=== PATIENT | male | born 1985 | race Caucasian/White ===

== ENCOUNTER 2023-06-03 10:05 | Inpatient (IN) ==
[2023-06-03] MEDS: HYDROmorphone INJ 0.5 MG/0.5 ML SYR IV STA (10:31)
--- NOTE | 2023-06-03 11:17 | XRay Report ---
XR knee LT 1 or 2V routine, XR knee RT 1 or 2V routine HISTORY: 38 years-old Male fall, ruptured patellar tendon acute bilateral knee pain status post fall COMPARISON: None TECHNIQUE: 2 views of the bilateral knees FINDINGS: LEFT: Patella howard. Mild circumferential soft tissue swelling most pronounced anteriorly. 6 mm corticated b one fragment noted in the region of the patellar tendon which is age-indeterminate without comparison . No definite acute fracture or dislocation. No large joint effusion. RIGHT: Patella howard. Mild circumferential soft tissue swelling is most pronounced anteriorly. No definite ac [place] fracture or dislocation. No large joint effusion. IMPRESSION: 1. No acute fracture or dislocation. 2. Bilateral patella howard with soft tissue swelling most pronounced anteriorly within the expected lo cation of the proximal patellar tendons. Correlate with physical exam findings to exclude tendon rupt ure(s). ACT 112: Negative or not required by law. The above report was generated using voice recognition software. It may contain grammatical, syntax o r spelling errors. Electronically signed by: Dallin Christopher M.D. 06/03/2023 11:15 AM
--- NOTE | 2023-06-03 13:37 | History & Physical Report ---
Date of Service June 03, 2023 Assessment & Plan (1) Patellar tendon rupture: We discussed diagnosis and treatment options at bedside. He is from the [place] area. He did not feel that he could get back into a vehicle or return home. He was hoping to have his knees treated here. He will be admitted to the orthopedic service. I do need MRIs of both knees. I want to make sure that we are dealing with true patella tendon ruptures before I open him up. If the MRIs confirm patella tendon ruptures then I will plan to fix his patella tendons later tomorrow afternoon. History of Present Illness Chief Complaint: Bilateral patella tendon rupture. Primary Care Provider: RAVI Reddy is a pleasant 38-year-old male who was leaving the [employer] game earlier today when he fell out of his camper. He sustained bilateral knee injuries. He came to the emergency room where radiographs demonstrated superior elevation of his patellas on both the films. This can be suggestive of patella tendon ruptures. He was placed in knee immobilizers. Orthopedics was consulted to evaluate and treat.. Past Med/Surg History Social History Smoking Status: Never smoker Feels Safe at Home: Yes Review of Systems All systems reviewed & are unremarkable except as noted in HPI & below. Physical Exam On physical examination of his legs, he has knee immobilizers in place. He has Kenneth wrap's around both knees. I did not bother taking everything down. I talked to the ER physician. They said they could feel the defects at the patella tendons. He is neurovascular intact.. Constitutional WD/WN, vitals as above Eyes PERRL, conjunctivae normal, anicteric sclerae ENMT external ear and nose normal, oropharynx normal Neck trachea midline, no thyromegaly Respiratory normal respiratory effort Cardiovascular RRR, no murmur, no edema Gastrointestinal (Abdomen) normal bowel sounds, soft, nontender, no hepatosplenomegaly Psychiatric A+Ox3, euthymic affect Results & Data Results & Data Laboratory Results . Diagnostic Findings X-rays of each knee show no signs of arthritis but there is superior displacement of the patella's.. PG Care Time/CCT Total # of Minutes Spent Total Time Spent with Patient: Total time spent is greater than 50% in coordination of care (as documented) at patient's floor/unit and/or counseling patient: Coding Level of Care Code 31340 INT INP/OBS CARE MIN (57 - DECISION FOR SURGERY) Diagnoses Patellar tendon rupture S86.819A
--- OUTSIDE RECORDS SUMMARY | 2023-06-03 15:04 | External Medical Summary ---
Author Name Unknown Address Unknown Organization [facility] [address] [place] Laboratory Report Ordering Provider Test Date Status Rekha Corea 03/13/2023 07:14:14 Final Observation Date Value Abnormality Reference (Units ) Status Cholesterol [Mass/volume] in Serum or Plasma 03/13/2023 10:37:53 185 100-200 (MG/DL) Final Metamizole (Dipyrone) may fa lsely lower test results. Cholesterol in HDL [Mass/volume] in Serum or Plasma 03/13/2023 10:37:53 33 Below low normal 35-80 (MG/DL) Fin al Triglyceride [Mass/volume] in Serum or Plasma 03/13/2023 10:37:53 211 Above high normal 30-190 (MG/DL) Final Metamizole (Dipyrone) may fa lsely lower test results. Cardiac heart disease risk [Ratio] in Serum or Plasma 03/13/2023 10:37:53 5.61 Above high normal 0. 00-4.49 Final 1.2 times the average risk o f CHD Cholesterol in LDL [Mass/volume] in Serum or Plasma by calculation 03/13/2023 10:37:53 110 Above high normal 0-99 (M G/DL) Final Performing Location [facility] [address] [place]
--- OUTSIDE RECORDS SUMMARY | 2023-06-03 15:04 | External Medical Summary ---
Author Name Unknown Address Unknown Organization [facility] [address] [place] Laboratory Report Ordering Provider Test Date Status Rekha Corea 03/13/2023 07:14:14 Final Observation Date Value Abnormality Reference (Units ) Status Neutrophils/100 leukocytes in Blood by Automated count 03/13/2023 09:43:14 51.1 (%) Final Lymphocytes/100 leukocytes in Blood by Automated count 03/13/2023 09:43:14 40.7 (%) Final Monocytes/100 leukocytes in Blood by Automated count 03/13/2023 09:43:14 5.1 (%) Final Eosinophils/100 leukocytes in Blood by Automated count 03/13/2023 09:43:14 1.9 (%) Final Basophils/100 leukocytes in Blood by Automated count 03/13/2023 09:43:14 0.9 (%) Final Immature granulocytes/100 leukocytes in Blood 03/13/2023 09:43:14 0.3 (%) Final Neutrophils [#/volume] in Blood by Automated count 03/13/2023 09:43:14 3.28 1.52-6.68 (K/UL) Final Lymphocytes [#/volume] in Blood by Automated count 03/13/2023 09:43:14 2.61 1.10-3.30 (K/UL) Final Monocytes [#/volume] in Blood by Automated count 03/13/2023 09:43:14 0.33 0.22-0.78 (K/UL) Final Eosinophils [#/volume] in Blood by Automated count 03/13/2023 09:43:14 0.12 0.00-0.40 (K/UL) Final Basophils [#/volume] in Blood by Automated count 03/13/2023 09:43:14 0.06 Above high normal 0.00-0.05 (K/UL) Final Immature granulocytes [#/volume] in Blood by Automated count 03/13/2023 09:43:14 0.02 0.00-0.03 (K/UL) Final Performing Location [facility] [address] [place]
--- OUTSIDE RECORDS SUMMARY | 2023-06-03 15:04 | External Medical Summary ---
Author Name Unknown Address Unknown Organization [facility] [address] [place] Laboratory Report Ordering Provider Test Date Status Rekha Corea 03/13/2023 07:14:14 Final Observation Date Value Abnormality Reference (Units ) Status Thyrotropin [Units/volume] in Serum or Plasma 03/13/2023 10:46:09 2.32 0.45-5.33 (uIU/mL) Final Performing Location [facility] [address] [place]3
--- OUTSIDE RECORDS SUMMARY | 2023-06-03 15:04 | External Medical Summary ---
Author Name Unknown Address Unknown Organization [facility] [address] [place] Laboratory Report Ordering Provider Test Date Status Rekha Corea 03/13/2023 07:14:14 Final Observation Date Value Abnormality Reference (Units ) Status Leukocytes [#/volume] in Blood by Automated count 03/13/2023 09:43:14 6.42 3.85-10.15 (K/UL) Final Erythrocytes [#/volume] in Blood by Automated count 03/13/2023 09:43:14 4.91 4.14-5.52 (M/UL) Final Hemoglobin [Mass/volume] in Blood 03/13/2023 09:43:14 13.9 13.3-16.2 (G/DL) Final Hematocrit [Volume Fraction] of Blood by Automated count 03/13/2023 09:43:14 41.4 39.0-48.0 (%) Final MCV [Entitic volume] by Automated count 03/13/2023 09:43:14 84.3 81.5-98.6 (fL) Final MCH [Entitic mass] by Automated count 03/13/2023 09:43:14 28.3 27.8-33.0 (pg) Final MCHC [Mass/volume] by Automated count 03/13/2023 09:43:14 33.6 32.3-36.7 (G/DL) Final Erythrocyte distribution width [Ratio] by Automated count 03/13/2023 09:43:14 13.7 11.4-15.0 (%) Final Platelets [#/volume] in Blood by Automated count 03/13/2023 09:43:14 269 160-400 (K/UL) Final Erythrocyte distribution width [Entitic volume] by Automated count 03/13/2023 09:43:14 42.1 36.4-46.3 (fL) Final Platelet mean volume [Entitic volume] in Blood by Automated count 03/13/2023 09:43:14 9.8 7.0-10.3 (fL) Final Nucleated erythrocytes/100 cells in Bone marrow by Manual count 03/13/2023 09:43:14 0.0 0.0-1.0 (%) Final Nucleated erythrocytes [#/volume] in Blood by Manual count 03/13/2023 09:43:14 0.00 (K/UL) Final Performing Location [facility] [address] [place] [id number]
--- OUTSIDE RECORDS SUMMARY | 2023-06-03 15:04 | External Medical Summary ---
Author Name Unknown Address Unknown Organization [facility] [address] [place] Laboratory Report Ordering Provider Test Date Status Noel Velazquez 01/12/2023 10:25:00 Final Observation Date Value Abnormality Reference (Units ) Status Final 01/14/2023 10:18:52 No Beta hemolytic streptococci isolated. Final Performing Location [facility] [address] [place]3
--- OUTSIDE RECORDS SUMMARY | 2023-06-03 15:04 | External Medical Summary | Continuity of Care Document ---
Author Name Unknown Organization [facility] [address] Address [address] [facility] [place] [id number] Care Team Providers Care Car Body Inspector Name Role Phone Anmol Da Silva Primary Care Physician [phone] Encounter R FINNBR [id number] Date(s): 05/08/23 - 05/08/23 [facility] [address] [facility] [place] Encounter Diagnosis Unspecified injury of left lower leg, initial encounter(Final) - Pain in right knee(Final) - Exposure to other specified factors, initial encounter(Final) - Discharge Disposition: Home or Self Care Attending Physician: DO Da Silva Earle S Referring Physician: DO Da Silva Earle S Allergies, Adverse Reactions, Alerts No Known Allergies Immunizations Given and Recorded Vaccine Date Status Refusal Reason SARS-CoV-2 (COVID-19) mRNA BNT-162b2 vax 1 05/26/20 Recorded SARS-CoV-2 (COVID-19) mRNA BNT-162b2 vax 2 04/29/20 Recorded 1Result Comment: 2021-03-21: Historical information-source unspecified 2Result Comment: 2021-03-21: Historical information-source unspecified Problem List No Chronic Problems Diagnosis Diagnosis Type Effective Dates Health Status Clinical Service Informant Unspecified injury of left lower leg, initial encounter 05/08/23 Non-Specified Pain in right knee 05/08/23 Non-Specifi ed Unspecified injury of left lower leg, initial encounter 05/08/23 Non-Specified Pain in right knee 05/08/23 Non-Specifi ed Results Radiology Reports * Exam Date Time Procedure Performing Provider Status 05/08/23 6:02 PM XR Knee 3 Views Right Janet Veliz L; Final Notes: (XR Knee 3 Views Right) Reason For Exam: injury Report Exam: XR Knee 3 Views Left, XR Knee 3 Views Right HISTORY: injury. COMPARISONS: None TECHNIQUE: 3 views radiograph of left knee are provided. 3 views radiograph of right knee are provided. FINDINGS: Left knee: No acute fracture or dislocation. Joint spaces are maintained. No bone erosion or destruction. Right knee: No acute fracture or dislocation. Joint spaces are maintained. No large knee joint effusion identified. No bone erosion or destruction. IMPRESSION: No acute fracture or dislocation in both knees. Signed by: Juan Ruiz DO, 05/08/2023 6:29 PM, Workstation ID: [id number] Final Dictated by:DO Ruiz Kyaw N Dictated DT/TM:05/08/2023 6:29 Signed by:DO Ruiz Kyaw N Signed (Electronic Signature):05/08/2023 6:29 p * Exam Date Time Procedure Performing Provider Status 05/08/23 6:02 PM XR Knee 3 Views Left Hernan Veliz L; Final Notes: (XR Knee 3 Views Left) Reason For Exam: injury Report Exam: XR Knee 3 Views Left, XR Knee 3 Views Right HISTORY: injury. COMPARISONS: None TECHNIQUE: 3 views radiograph of left knee are provided. 3 views radiograph of right knee are provided. FINDINGS: Left knee: No acute fracture or dislocation. Joint spaces are maintained. No bone erosion or destruction. Right knee: No acute fracture or dislocation. Joint spaces are maintained. No large knee joint effusion identified. No bone erosion or destruction. IMPRESSION: No acute fracture or dislocation in both knees. Signed by: Juan Ruiz DO, 05/08/2023 6:29 PM, Workstation ID: [id number] Final Dictated by:DO Ruiz Kyaw N Dictated DT/TM:05/08/2023 6:29 Signed by:DO Ruiz Kyaw N Signed (Electronic Signature):05/08/2023 6:29 p Social History Social History Type Response Smoking Status Never smoked cigaret marlyn Sex Male Patient Care team information Care Team Personnel Name: DO Da Silva Earle S Position: Referring Member Role: Primary Care Provider Address: Address: [address] [place], [address] [place] Care Team Related Persons Name: HAYDER SEVERIANO Levi Address: home [address] [facility] [place]
--- OUTSIDE RECORDS SUMMARY | 2023-06-03 15:04 | External Medical Summary | Continuity of Care Document ---
Author Name Unknown Organization [facility] [address] [facility] [place] [id number] Care Team Providers Care Piano Regulator Inspector Name Role Phone Anmol Da Silva Primary Care Physician [phone] Encounter R VADIM [id number] Date(s): 03/13/23 - 03/13/23 [facility] [address] [facility] [place] Discharge Disposition: Home or Self Care Attending [...] Diagnosis Diagnosis Type Effective Dates Health Status Cl inical Service Informant Encounter for screening for other suspected endocrine disorder 03/13/23 Non-Specified Encounter for screening for other suspected endocrine disorder 03/13/23 Non-Specified Encounter for screening for diseases of the blood and blood-forming organs and certain disorders involving the immune mechanism 03/13/23 Non-Specified Encounter for screening for diseases of the blood and blood-forming organs and certain disorders involving the immune mechanism 03/13/23 Non-Specified Encounter for screening for lipoid disorders 03/13/23 Non-Specified Encounter for screening for other suspected endocrine disorder 03/13/23 Non-Specified Encounter for screening for lipoid disorders 03/13/23 Non-Specified Encounter for screening for diseases of the blood and blood-forming organs and certain disorders involving the immune mechanism 03/13/23 Non-Specified Encounter for screening for other suspected endocrine disorder 03/13/23 Non-Specified Encounter for screening for diseases of the blood and blood-forming organs and certain disorders involving the immune mechanism 03/13/23 Non-Specified Encounter for screening for lipoid disorders 03/13/23 Non-Specified Encounter for screening for lipoid disorders 03/13/23 Non-Specified Results Laboratory List Name Date CBC w/ Diff. 03/13/23 Comprehensive Metabolic Panel. 03/13/23 Lipid Panel. 03/13/23 Thyroid Stimulating Hormone. 03/13/23 Automated Differential. 03/13/23 Most recent to oldest [Reference Range]: 1 eGFR CKD-EPI [>=60 mL/min/1.73 m2] >90 m L/min/1.73 m2 (03/13/23 7:14 AM) BUN/Creat Ratio [10-20] 20 (03/13/23 7:14 AM) Osmolality Calc [275-300 mOsm/kg] 279 mO sm/kg (03/13/23 7:14 AM) RDW-CV [11.4-15.0 %] 13.7 % (03/13/23 7:14 AM) RDW-SD [36.4-46.3 fL] 42.1 fL (03/13/23 7:14 AM) Nuc RBC Relative Count [0.0-1.0 %] 0.0 % (03/13/23 7:14 AM) Nuc RBC Abs Count 0.00 K/uL *NA* (03/13/23 7:14 AM) Cardiac Risk ratio [0.00-4.49] 5.61 1 *HI* (03/13/23 7:14 AM) CO2 [22.0-29.0 mmol/L] 27.7 mmol/L (03/13/23 7:14 AM) MPV [7.0-10.3 fL] 9.8 fL (03/13/23 7:14 AM) Immature Gran% 0.3 % *NA* (03/13/23 7:14 AM) Neut% 51.1 % *NA* (03/13/23 7:14 AM) Lymph% 40.7 % *NA* (03/13/23 7:14 AM) Ritchie% 5.1 % *NA* (03/13/23 7:14 AM) Baso% 0.9 % *NA* (03/13/23 7:14 AM) Eos% 1.9 % *NA* (03/13/23 7:14 AM) Immat Gran, Abs [0.00-0.03 K/uL] 0.02 K/ uL (03/13/23 7:14 AM) Neut, Abs [1.52-6.68 K/uL] 3.28 K/uL (03/13/23 7:14 AM) Lymph, Abs [1.10-3.30 K/uL] 2.61 K/uL (03/13/23 7:14 AM) Ritchie, Abs [0.22-0.78 K/uL] 0.33 K/uL (03/13/23 7:14 AM) Baso, Abs [0.00-0.05 K/uL] 0.06 K/uL *HI* (03/13/23 7:14 AM) Eos, Abs [0.00-0.40 K/uL] 0.12 K/uL (03/13/23 7:14 AM) Anion Gap [5-15 mmol/L] 6 mmol/L (03/13/23 7:14 AM) Alb [3.8-5.4 g/dL] 4.3 g/dL (03/13/23 7:14 AM) Alk Phos [60-350 unit/L] 61 unit/L (03/13/23 7:14 AM) ALT [10-60 unit/L] 35 unit/L (03/13/23 7:14 AM) AST [7-40 unit/L] 25 unit/L (03/13/23 7:14 AM) BUN [8-25 mg/dL] 16 mg/dL (03/13/23 7:14 AM) Ca [8.5-10.5 mg/dL] 9.2 mg/dL (03/13/23 7:14 AM) Chol [100-200 mg/dL] 185 mg/dL 2 (03/13/23 7:14 AM) Cl- [97-109 mmol/L] 105 mmol/L (03/13/23 7:14 AM) Cret [0.45-1.00 mg/dL] 0.82 mg/dL 3 (03/13/23 7:14 AM) Glu [50-99 mg/dL] 95 mg/dL 4 (03/13/23 7:14 AM) Hct [39.0-48.0 %] 41.4 % (03/13/23 7:14 AM) HDL [35-80 mg/dL] 33 mg/dL *LOW* (03/13/23 7:14 AM) Hgb [13.3-16.2 g/dL] 13.9 g/dL (03/13/23 7:14 AM) K [3.5-5.1 mmol/L] 4.4 mmol/L (03/13/23 7:14 AM) LDL Chol, Calculated [0-99 mg/dL] 110 mg /dL *HI* (03/13/23 7:14 AM) MCH [27.8-33.0 pg] 28.3 pg (03/13/23 7:14 AM) MCHC [32.3-36.7 g/dL] 33.6 g/dL (03/13/23 7:14 AM) MCV [81.5-98.6 fL] 84.3 fL (03/13/23 7:14 AM) Na [132-145 mmol/L] 139 mmol/L (03/13/23 7:14 AM) Plts [160-400 K/uL] 269 K/uL (03/13/23 7:14 AM) RBC [4.14-5.52 M/uL] 4.91 M/uL (03/13/23 7:14 AM) T Bili [0.2-1.2 mg/dL] 0.4 mg/dL (03/13/23 7:14 AM) Prot [6.2-8.0 g/dL] 7.0 g/dL (03/13/23 7:14 AM) TG [30-190 mg/dL] 211 mg/dL 5 *HI* (03/13/23 7:14 AM) TSH [0.45-5.33 uIU/mL] 2.32 uIU/mL (03/13/23 7:14 AM) WBC [3.85-10.15 K/uL] 6.42 K/uL (03/13/23 7:14 AM) 1Result Comment: 1.2 times the average risk of CHD 2Interpretive Data: Metamizole (Dipyrone) may falsely lower test results. 3Result Comment: eGFR is calculated by the CKD-EPI Creatinine equation (2020). * eGFR (mL/min/1.73) Category/Term >or= 90 G1/Normal or high 60-89 G2/Mildly Decreased 45-59 G3a/Mildly to moderately decreased 30-44 G3b/Moderately to severely decreased 15-29 G4/Severely decreased <15 G5/Kidney Failure *Note New 2020 equation. For more information on GFR and estimating equations, visit: http://www.kidney.org/professionals/kdoqi/gfr.cfm 4Interpretive Data: The Reference Range listed is for fasting blood Glucose only. 5Interpretive Data: Metamizole (Dipyrone) may falsely lower test results. Social History Social History Type Response Smoking Status Never smoked cigaret marlyn Sex Male Patient Care team information Care Team Personnel Name: DO Da Silva Earle S Position: Referring Member Role: Primary Care Provider Address: Address: [address] [place], [address] [place] Care Team Related Persons Name: SEVERIANO SINGLETARY Address: home [address], [place]
[2023-06-03] MEDS ORDERED: Patient's ALLERGY Info needs ENTERED SCH (15:30)
[2023-06-03] MEDS: SODIUM CHLORIDE 0.9% 1,000 ML IV SCH (16:08)
[2023-06-03] MEDS: Patient's ALLERGY Info needs ENTERED STA (17:05)
[2023-06-03] MEDS: diazePAM 5 MG TABLET PO STA (17:32)
--- NOTE | 2023-06-03 18:11 | Emergency Department Note ---
History of Present Illness General Chief complaint: Leg Injury/Pain Stated complaint: LEG INJURY Time Seen by Provider: 06/03/23 10:10 History of Present Illness Maximum Pain Intensity: 4 This 38-year-old male is seen today for evaluation of bilateral knees. The patient [place] This morning he stepped outside in his socks and believes the camper may have sunken the ground overnight. He states the steps to the camper were tilted slightly down. He slipped off of them and onto the ground. He believes his legs hyperextended. He felt pops and had immediate onset of pain in his legs. He was unable to bear weight. He noticed that his patellae were not in a normal position. EMS was called. He was given fentanyl 25 mcg in the ambulance. No prior history of significant knee injury. He states he did have some chronic pain in his patellar tendons since playing basketball in January. He was seen by his PCP 2 weeks ago and had x-rays that were reportedly normal. He denies any numbness or tingling. No additional complaints. He denies striking his head. There was no loss of conscious. Home Medications Medication Instructions Recorded Confirmed Type sildenafil 100 mg tablet 100 mg PO DAILY PRN other 06/03/23 06/03/23 History tirzepatide (weight loss) 2.5 2.5 mg subcut WK 06/03/23 06/03/23 History mg/0.5 mL subcutaneous pen injector (Zepbound) Allergies Allergy/AdvReac Type Severity Reaction Status Date / Time No Known Allergies Allergy Unverified 06/03/23 16:32 Past Med/Surg History Medical History (Updated 06/03/23 @ 18:19 by Leonid Reardon PA-C) Obesity Surgical History (Updated 06/03/23 @ 18:06 by Leonid Reardon PA-C) No pertinent past surgical history Family History Other No pertinent family history Social History (Updated 06/03/23 @ 18:06 by Leonid Reardon PA-C) Smoking Status: Never smoker Hx Alcohol Use: Yes Alcohol type: beer Hx Substance Use: Yes Last Used Substance: Days (ago) Last Used Substance Other:: pt said he takes for anxiety as needed Substance Use Type Other:: medical marijuana Preferred Language: [place] Communication Ability: Effective Hearing Ability: Normal Patient Accounts Clerk Required: No Beliefs That Will Affect Care: None marital status: Current Living Situation: Family current occupational status: employed Feels Safe at Home: Yes Assistive Devices: None Review of Systems A total of 10 systems reviewed and were otherwise negative Physical Exam Vital Signs Vital Signs - 24 hr 06/03/23 10:05 06/03/23 11:43 06/03/23 12:46 Temperature 36.9 C Temperature Source Oral Pulse Rate 89 Pulse Rate [Radial] 77 92 H Pulse Rhythm [Radial] Regular Regular Respiratory Rate 18 18 18 Respiratory Effort / Characteristics Non-Labored Non-Labored Non-Labored Respiratory Depth Normal Normal Normal Respiratory Pattern Regular Regular Regular Blood Pressure 150/81 H Blood Pressure [Right Arm] 171/97 H 154/103 H Blood Pressure Mean 104 Blood Pressure Mean [Right Arm] 121 120 Pulse Oximetry 99 100 100 Oxygen Delivery Method Room Air Room Air Room Air Sepsis Recent Fever Within 48 Hours No Sepsis New/Unexplained Change in Mental Status N/A Sepsis Action Taken by Nursing No Action Required General: Well-developed, well-nourished, young male, in no acute distress. Obvious discomfort. Laying on the bed. Alert and oriented. Skin: Warm and dry with good turgor. No rashes. No ecchymosis or erythema. His patella are visibly high. Mild effusion has developed in both knees. Heart: Heart RRR. No MGR. Peripheral pulses are 2+. Lungs: Lungs are clear to auscultation. No crackles rhonchi or wheezing. Good air movement. The patient is able to take a deep breath. Abdomen: Abdomen was inspected, auscultated, and palpated. Mildly obese. Bowel sounds present x 4. Soft, nontender to palpation. No hepato-splenomegaly. No masses noted. Musculoskeletal: The patient is able to contract his quad and both legs, however this does increase his pain. Both patella are riding high. He has a large palpable defect in the infrapatellar space, with no tendon palpable. He is unable to perform straight leg raise. He cannot actively extend his lower legs. There is intact motor function of the ankles and toes. Stable collateral ligaments bilaterally. No pain with palpation over the gastroc or hamstrings in either leg. Neurologic: Gross sensation is intact across both lower extremities by soft touch. Peripheral pulses are 2+. Course Administered Medications Discontinued Medications Diazepam (Diazepam 5 Mg Tablet) 5 mg PO NOW STA Stop: 06/03/23 16:47 Last Admin: 06/03/23 17:32 Dose: 5 mg Documented By: KASI Hydromorphone HCl (Hydromorphone Inj 0.5 Mg/0.5 Ml Syr) 0.25 mg IV NOW STA Stop: 06/03/23 10:24 Last Admin: 06/03/23 10:31 Dose: 0.25 mg Documented By: JER Sodium Chloride (Nss) 1,000 mls @ 80 mls/hr IV .[id number] MORENA Stop: 07/03/23 14:52 Last Admin: 06/03/23 16:08 Dose: Not Given Documented By: KASI Miscellaneous Information (Patient's Allergy Info Needs Entered) 1 each N/A NOW STA Stop: 06/03/23 16:13 Last Admin: 06/03/23 17:05 Dose: 1 each Documented By: KASI Medical Decision Making Differential Diagnosis Quadriceps tendon rupture, patellar tendon rupture, ACL tear, patellar fracture, knee dislocation Medical Records Attestation: I reviewed the patient's medical records. Home Medications Current Medication List: was personally reviewed by me Imaging Data My Impression: Radiographic imaging obtained today of both knees was interpreted by me and read by radiology. The patient has patella howard bilaterally with soft tissue swelling in both knees. It is confirmative for patellar tendon rupture. No fracture is evident in either knee. MRI imaging of both knees was obtained to rule out additional ligament injury. These were also interpreted by me and read by radiology. Talar tendon ruptures are confirmed. No additional internal derangement is noted. Radiologist's Impression: Knee X-Ray 06/03/23 10:23 XR knee LT 1 or 2V routine, XR knee RT 1 or 2V routine HISTORY: 38 years-old Male fall, ruptured patellar tendon acute bilateral knee pain status post fall COMPARISON: None TECHNIQUE: 2 views of the bilateral knees FINDINGS: LEFT: Patella howard. Mild circumferential soft tissue swelling most pronounced anteriorly. 6 mm corticated bone fragment noted in the region of the patellar tendon which is age-indeterminate without comparison. No definite acute fracture or dislocation. No large joint effusion. RIGHT: Patella howard. Mild circumferential soft tissue swelling is most pronounced anteriorly. No definite acute fracture or dislocation. No large joint effusion. IMPRESSION: 1. No acute fracture or dislocation. 2. Bilateral patella howard with soft tissue swelling most pronounced anteriorly within the expected location of the proximal patellar tendons. Correlate with physical exam findings to exclude tendon rupture(s). ACT 112: Negative or not required by law. The above report was generated using voice recognition software. It may contain grammatical, syntax or spelling errors. Electronically signed by: Dallin Christopher M.D. 06/03/2023 11:15 AM Knee X-Ray 06/03/23 10:23 XR knee LT 1 or 2V routine, XR knee RT 1 or 2V routine HISTORY: 38 years-old Male fall, ruptured patellar tendon acute bilateral knee pain status post fall COMPARISON: None TECHNIQUE: 2 views of the bilateral knees FINDINGS: LEFT: Patella howard. Mild circumferential soft tissue swelling most pronounced anteriorly. 6 mm corticated bone fragment noted in the region of the patellar tendon which is age-indeterminate without comparison. No definite acute fracture or dislocation. No large joint effusion. RIGHT: Patella howard. Mild circumferential soft tissue swelling is most pronounced anteriorly. No definite acute fracture or dislocation. No large joint effusion. IMPRESSION: 1. No acute fracture or dislocation. 2. Bilateral patella howard with soft tissue swelling most pronounced anteriorly within the expected location of the proximal patellar tendons. Correlate with physical exam findings to exclude tendon rupture(s). ACT 112: Negative or not required by law. The above report was generated using voice recognition software. It may contain grammatical, syntax or spelling errors. Electronically signed by: Dallin Christopher M.D. 06/03/2023 11:15 AM Blood Pressure Blood Pressure Findings: Elevated blood pressure Blood Pressure Disposition: elevated BP felt to be situational MDM Narrative The patient was evaluated in room B12. Conservative care measures were discussed. Radiographic imaging was obtained to confirm the patellar tendon ruptures. The patient was placed in Long dressings with Kenneth wraps. He was also placed in knee immobilizers bilaterally. He was given Dilaudid 0.25 mg IV for pain control. An attempt was made to have him stand and transfer using a walker. The patient was unable to stand, and stated he could not go home. He requested surgical intervention here as opposed to home in [place]. His was present for this discussion and was in agreement. The patient last ate 4 hours ago, and would not be able to have surgery for at least another [address] Espinoza from orthopedics was consulted. He came to the department to evaluate the patient. He requested MRI imaging of both knees to rule out any additional injury. These were completed. Impression & Plan Patellar tendon rupture The patient will be admitted to Dr. Espinoza's service. Please see his dictation for final management. The patient remained stable while in the ED. Discharge Plan Visit Data Chief Complaint: Leg Injury/Pain Stated Complaint: LEG INJURY ED Provider: Donald Wallis ED Midlevel Provider: Leonid Reardon Discharge Problem: Patellar tendon rupture Patient Disposition: Admitted As Inpatient Discharge Instructions Interventions: ED Discharge Assessment Last Done: 06/03/23 14:39 Discharge Problem: Patellar tendon rupture Qualifiers: Encounter type: initial encounter Laterality: unspecified laterality Qualified Code(s): S86.819A - Strain of other muscle(s) and tendon(s) at lower leg level, unspecified leg, initial encounter
--- NOTE | 2023-06-03 18:28 | Magnetic Resonance Report ---
MR knee LT wo con CLINICAL HISTORY: 38 years-old Male with patellar tendon rupture. Acute bilateral knee pain COMPARISON: Left knee radiographs of same day TECHNIQUE: Multiplanar, multisequence MRI of the left knee was performed without intravenous contrast . FINDINGS: Motion degraded exam. r MENISCI: The medial and lateral meniscus are normal in position, morphology and signal. CRUCIATE LIGAMENTS: The anterior and posterior cruciate ligaments are normal in signal, morphology an d course. COLLATERAL LIGAMENTS: The popliteus tendon, biceps femoris tendon, fibular collateral ligament and il iotibial band are intact. The superficial and deep components of the medial collateral ligament are intact. EXTENSOR MECHANISM: Distal quadriceps tendon is intact. There is an acute full-thickness rupture of t he proximal patellar tendon demonstrating 5 mm retraction with moderate adjacent deep tissue edema. A cute grade II sprains of the medial and lateral patellofemoral ligaments with acute full thickness te ars involving the patellar insertion fibers of the medial and lateral retinacula at the patellar inse rtion sites. Patella howard. Small complex joint effusion. KNEE JOINT: No significant joint space narrowing or high-grade chondromalacia. Low to intermediate gr vladimir chondromalacia of the superior trochlea. BONE MARROW: Bone marrow edema of the inferior patella. Evaluation is limited secondary to motion art ifact. SOFT TISSUES: Deep tissue edema surrounding the patellar tendon tear. IMPRESSION: 1. Acute full-thickness tear of the patellar insertion site of the patellar tendon with 5 mm retracti on. 2. Acute full-thickness tears of the patellar insertion fibers of the medial and lateral patellar ret inacula. 3. Acute grade II sprains of the patellofemoral ligaments. 4. Small complex joint effusion with intra-articular debris/hemorrhage. 5. Reactive marrow edema of the inferior patella without acute fracture identified. ACT 112: Negative or not required by law. The above report was generated using voice recognition software. It may contain grammatical, syntax o r spelling errors. Electronically signed by: Dallin Christopher M.D. 06/03/2023 6:27 PM
--- NOTE | 2023-06-03 18:28 | Magnetic Resonance Report ---
MR knee RT wo con CLINICAL HISTORY: 38 years-old Male with patellar tendon rupture. 2 bilateral knee pain status post trauma COMPARISON: Right knee radiographs of same day TECHNIQUE: Multiplanar, multisequence MRI of the right knee was performed without intravenous contras t. FINDINGS: MENISCI: The medial and lateral meniscus are normal in position, morphology and signal. CRUCIATE LIGAMENTS: The anterior and posterior cruciate ligaments are normal in signal, morphology an d course. COLLATERAL LIGAMENTS: The popliteus tendon, biceps femoris tendon, fibular collateral ligament and il iotibial band are intact. The superficial and deep components of the medial collateral ligament are intact. EXTENSOR MECHANISM: Distal quadriceps tendon is intact. There is an acute full-thickness rupture of t he proximal patellar tendon demonstrating 1.7 cm retraction with moderate adjacent deep tissue edema. Acute grade I versus grade II sprains of the medial and lateral patellofemoral ligaments with acute full thickness tears involving the patellar insertion fibers of the medial and lateral retinacula at the patellar insertion sites. Lateral tilt of the patella. Small complex joint effusion. KNEE JOINT: No significant joint space narrowing or high-grade chondromalacia. BONE MARROW: Bone marrow edema of the inferior patella. Evaluation is limited secondary to motion art ifact. SOFT TISSUES: The tissue edema surrounding the patellar tendon tear. IMPRESSION: 1. Acute full-thickness tear of the patellar insertion site of the patellar tendon with 1.7 cm retrac tion. 2. Acute full-thickness tears of the patellar insertion fibers of the medial and lateral patellar ret inacula. 3. Acute grade I versus grade II sprains of the patellofemoral ligaments. 4. Small complex joint effusion with intra-articular debris/hemorrhage. 5. Reactive marrow edema of the inferior patella without acute fracture identified. ACT 112: Negative or not required by law. The above report was generated using voice recognition software. It may contain grammatical, syntax o r spelling errors. Electronically signed by: Dallin Christopher M.D. 06/03/2023 6:27 PM
[2023-06-03] MEDS: oxyCODONE/ACETAMINOPHEN 5mg/325mg TAB PO PRN (20:37)
[2023-06-03] MEDS: diphenhydrAMINE Capsule 25 MG CAP PO ONE (22:43)
[2023-06-04] MEDS: SODIUM CHLORIDE 0.9% 1,000 ML IV SCH (00:18)
[2023-06-04] MEDS: diazePAM 5 MG TABLET PO PRN (01:21)
[2023-06-04] MEDS: ZOLPIDEM TARTRATE 5 MG TAB PO ONE (04:50)
--- NOTE | 2023-06-04 09:59 | Orthopedic Progress Note ---
Date of Service June 04, 2023 Assessment & Plan (1) Patellar tendon rupture: Overall, he is doing quite well today with good pain control to the bilateral knees. He is currently scheduled to proceed with surgical intervention for bilateral patellar tendon repair to be performed by Dr. Espinoza later this afte rnoon. He should remain n.p.o. at this time. Postoperative expectations were discussed today as well. Will proceed with surgical intervention later this morning. Patient was seen and evaluated today with Dr. Espinoza with agreed-upon plan as above Subjective . Barry was seen this morning resting comfortably in bed in no apparent distress. He is maintaining his bilateral knee immobilizers. He is currently scheduled today for a bilateral patellar tendon repair to be done by Dr. Espinoza. He is currently NPO. He denies any other concerns today. Review of Systems All systems reviewed & are unremarkable except as noted in HPI & below. Physical Exam . On physical examination of the lower extremities, he does have bilateral knee immobilizers in place. He has active plantarflexion dorsiflexion bilaterally. +2 DP and PT pulses. Less than 2-second capillary refill. Normal sensation. Neurovascular intact. Results & Data Results & Data Laboratory Results . Diagnostic Findings . Knee X-Ray 06/03/23 10:23 XR knee LT 1 or 2V routine, XR knee RT 1 or 2V routine HISTORY: 38 years-old Male fall, ruptured patellar tendon acute bilateral knee pain status post fall COMPARISON: None TECHNIQUE: 2 views of the bilateral knees FINDINGS: LEFT: Patella howard. Mild circumferential soft tissue swelling most pronounced anteriorly. 6 mm corticated bone fragment noted in the region of the patellar tendon which is age-indeterminate without comparison. No definite acute fracture or dislocation. No large joint effusion. RIGHT: Patella howard. Mild circumferential soft tissue swelling is most pronounced anteriorly. No definite acute fracture or dislocation. No large joint effusion. IMPRESSION: 1. No acute fracture or dislocation. 2. Bilateral patella howard with soft tissue swelling most pronounced anteriorly within the expected location of the proximal patellar tendons. Correlate with physical exam findings to exclude tendon rupture(s). ACT 112: Negative or not required by law. The above report was generated using voice recognition software. It may contain grammatical, syntax or spelling errors. Electronically signed by: Dallin Christopher M.D. 06/03/2023 11:15 AM Knee X-Ray 06/03/23 10:23 XR knee LT 1 or 2V routine, XR knee RT 1 or 2V routine HISTORY: 38 years-old Male fall, ruptured patellar tendon acute bilateral knee pain status post fall COMPARISON: None TECHNIQUE: 2 views of the bilateral knees FINDINGS: LEFT: Patella howard. Mild circumferential soft tissue swelling most pronounced anteriorly. 6 mm corticated bone fragment noted in the region of the patellar tendon which is age-indeterminate without comparison. No definite acute fracture or dislocation. No large joint effusion. RIGHT: Patella howard. Mild circumferential soft tissue swelling is most pronounced a nteriorly. No definite acute fracture or dislocation. No large joint effusion. IMPRESSION: 1. No acute fracture or dislocation. 2. Bilateral patella howard with soft tissue swelling most pronounced anteriorly within the expected location of the proximal patellar tendons. Correlate with physical exam findings to exclude tendon rupture(s). ACT 112: Negative or not required by law. The above report was generated using voice recognition software. It may contain grammatical, syntax or spelling errors. Electronically signed by: Dallin Christopher M.D. 06/03/2023 11:15 AM Knee MRI 06/03/23 12:24 MR knee RT wo con CLINICAL HISTORY: 38 years-old Male with patellar tendon rupture. 2 bilateral knee pain status post trauma COMPARISON: Right knee radiographs of same day TECHNIQUE: Multiplanar, multisequence MRI of the right knee was performed without intravenous contrast. FINDINGS: MENISCI: The medial and lateral meniscus are normal in position, morphology and signal. CRUCIATE LIGAMENTS: The anterior and posterior cruciate ligaments are normal in signal, morphology and course. COLLATERAL LIGAMENTS: The popliteus tendon, biceps femoris tendon, fibular collateral ligament and iliotibial band are intact. The superficial and deep components of the medial collateral ligament are intact. EXTENSOR MECHANISM: Distal quadriceps tendon is intact. There is an acute full- thickness rupture of the proximal patellar tendon demonstrating 1.7 cm retraction with moderate adjacent deep tissue edema. Acute grade I versus grade II sprains of the medial and lateral patellofemoral ligaments with acute full thickness tears involving the patellar insertion fibers of the medial and lateral retinacula at the patellar insertion sites. Lateral tilt of the patella. Small complex joint effusion. KNEE JOINT: No significant joint space narrowing or high-grade chondromalacia. BONE MARROW: Bone marrow edema of the inferior patella. Evaluation is limited secondary to motion artifact. SOFT TISSUES: The tissue edema surrounding the patellar tendon tear. IMPRESSION: 1. Acute full-thickness tear of the patellar insertion site of the patellar tendon with 1.7 cm retraction. 2. Acute full-thickness tears of the patellar insertion fibers of the medial and lateral patellar retinacula. 3. Acute grade I versus grade II sprains of the patellofemoral ligaments. 4. Small complex joint effusion with intra-articular debris/hemorrhage. 5. Reactive marrow edema of the inferior patella without acute fracture identified. ACT 112: Negative or not required by law. The above report was generated using voice recognition software. It may contain grammatical, syntax or spelling errors. Electronically signed by: Dallin Christopher M.D. 06/03/2023 6:27 PM Knee MRI 06/03/23 12:24 MR knee LT wo con CLINICAL HISTORY: 38 years-old Male with patellar tendon rupture. Acute bilateral knee pain COMPARISON: Left knee radiographs of same day TECHNIQUE: Multiplanar, multisequence MRI of the left knee was performed without intravenous contrast. FINDINGS: Motion degraded exam. r MENISCI: The medial and lateral meniscus are normal in position, morphology and signal. CRUCIATE LIGAMENTS: The anterior and posterior cruciate ligaments are normal in signal, morphology and course. COLLATERAL LIGAMENTS: The popliteus tendon, biceps femoris tendon, fibular collateral ligament and iliotibial band are intact. The superficial and deep components of the medial collateral ligament are intact. EXTENSOR MECHANISM: Distal quadriceps tendon is intact. There is an acute full- thickness rupture of the proximal patellar tendon demonstrating 5 mm retraction with moderate adjacent deep tissue edema. Acute grade II sprains of the medial and lateral patellofemoral ligaments with acute full thickness tears involving the patellar insertion fibers of the medial and lateral retinacula at the patellar insertion sites. Patella howard. Small complex joint effusion. KNEE JOINT: No significant joint space narrowing or high-grade chondromalacia. Low to intermediate grade chondromalacia of the superior trochlea. BONE MARROW: Bone marrow edema of the inferior patella. Evaluation is limited secondary to motion artifact. SOFT TISSUES: Deep tissue edema surrounding the patellar tendon tear. IMPRESSION: 1. Acute full-thickness tear of the patellar insertion site of the patellar tendon with 5 mm retraction. 2. Acute full-thickness tears of the patellar insertion fibers of the medial and lateral patellar retinacula. 3. Acute grade II sprains of the patellofemoral ligaments. 4. Small complex joint effusion with intra-articular debris/hemorrhage. 5. Reactive marrow edema of the inferior patella without acute fracture identified. ACT 112: Negative or not required by law. The above report was generated using voice recognition software. It may contain grammatical, syntax or spelling errors. Electronically signed by: Dallin Christopher M.D. 06/03/2023 6:27 PM PG Care Time/CCT Total # of Minutes Spent Total Time Spent with Patient: Total time spent is greater than 50% in coordination of care (as documented) at patient's floor/unit and/or counseling patient: Coding Level of Care Code 96398 SUB INP/OBS CARE 2MIN Diagnoses Patellar tendon rupture S86.819A Encounter type: initial encounter Laterality: unspecified laterality (1) Patellar tendon rupture Encounter type: initial encounter Laterality: unspecified laterality Qualified Code(s): S86.819A - Strain of other muscle(s) and tendon(s) at lower leg level, unspecified leg, initial encounter
--- NOTE | 2023-06-04 11:49 | History & Physical Bridge Note ---
Date of Service June 04, 2023 History & Physical Bridge Note I have examined the patient, reviewed the History & Physical and in the interval since the performance of the History & Physical I have noted the following changes of clinical significance: no changes noted
[2023-06-04] MEDS ORDERED: ACETAMINOPHEN 1000 MG/100 ML IV IV ONE (13:52)
[2023-06-04] MEDS ORDERED: DexMEDEtomidine HCL IV 100 MCG/ML VIAL IV ONE (13:52)
[2023-06-04] MEDS ORDERED: LIDOCAINE 2% 2 ML VIAL/AMP(20MG/ML) INFIL ONE (13:53)
[2023-06-04] MEDS ORDERED: PROPOFOL IV EMULSION 10 MG/ML 20 ML VIAL IV ONE (13:53)
[2023-06-04] MEDS ORDERED: MIDAZOLAM HCL 1 MG/ML 2ML VIAL ONE (13:53)
[2023-06-04] MEDS ORDERED: fentaNYL citrate PF 100 MCG/2 ML VIAL ONE (13:54)
[2023-06-04] MEDS: LACTATED RINGER'S 1,000 ML IV SCH (14:07)
[2023-06-04] MEDS ORDERED: BUPIVACAINE 0.25% PF 30 ML VIAL ONE (14:09)
[2023-06-04] MEDS ORDERED: ATROPINE SULFATE 0.1 MG/ML 10ML SYR IV PRN (14:10)
[2023-06-04] MEDS ORDERED: HYDROmorphone INJ 1 MG/ML SYRINGE IV PRN (14:10)
[2023-06-04] MEDS ORDERED: ePHEDrine sulfate 50 MG/ML AMP IV PRN (14:10)
[2023-06-04] MEDS ORDERED: ONDANSETRON INJ 2 MG/ML 2 ML VIAL IV PRN (14:10)
--- NOTE | 2023-06-04 14:12 | Anesthesiology Consultation ---
Date of Service June 04, 2023 Assessment & Plan Chart Review Chart Review: Acceptable Risk for Surgery and Patient NOT seen in Pre Admission Testing Consults Requested none ASA ASA2 Proposed Anesthesia Anesthesia Type: General Regional Laterality: Bilateral Site: Adductor Canal Risk / Benefits Reviewed With: PT / POA / Parent / Guardian, Accepts Plan and Informed Consent Obtained History Surgery Operation Date: 06/04/23 07:00 Proposed Procedures p Bilateral Patella Tendon Repair - Darell Espinoza, DO Height/Weight Height: 6 ft 2 in Weight: 112.5 kg Allergies Allergy/AdvReac Type Severity Reaction Status Date / Time No Known Allergies Allergy Unverified 06/03/23 16:32 Medications Home Medications Medication Instructions Recorded Confirmed Last Taken sildenafil 100 mg tablet 100 mg PO DAILY PRN other 06/03/23 06/03/23 Unknown tirzepatide (weight loss) 2.5 2.5 mg subcut WK 06/03/23 06/03/23 05/27/23 mg/0.5 mL subcutaneous pen injector ([employer]pbound) Active Medications Generic Name Dose Route Start Last Admin Trade Name Freq PRN Reason Stop Dose Admin Diazepam 5 mg 06/03/23 16:46 06/04/23 09:23 Diazepam 5 Mg Tablet PO 07/03/23 16:45 5 mg Q8H PRN Administration Anxiety Sodium Chloride 1,000 mls @ 80 mls/hr 06/04/23 00:00 06/04/23 12:27 Nss IV 07/04/23 00:00 80 mls/hr .[id number] MORENA Administration Lactated Ringer's 1,000 mls @ 15 mls/hr 06/04/23 13:45 06/04/23 14:07 Lr IV 07/04/23 13:44 15 mls/hr .Q24H MORENA Administration Oxycodone/Acetaminophen 1 - 2 tab 06/03/23 14:53 06/04/23 10:06 Oxycodone/Acetaminophen 5mg/325mg Tab PO 06/17/23 14:52 2 tab Q4H PRN Administration Pain NPO Date Last Intake of Fluids: 06/04/23 Time Last Intake of Fluids: 10:00 Last Intake of Fluids Comment: Sip with medications Date Last Intake of Solids: 06/03/23 Time Last Intake of Solids: 22:00 Past Medical History Medical History Obesity Exercise / Class Metabolic Activity 1 > 8 Run/Swim/Ski/Tennis Past Family History Family History Other No pertinent family history Past Surgical History Surgical History No pertinent past surgical history Past Anesthesia History No Hx of Anesthesia Complications and No Family Hx of Anesthesia Complications History of PONV No Hx of PONV and No Hx of Motion Sickness Social History Smoking Status: Never smoker Hx Alcohol Use: Yes Alcohol type: beer alcohol intake frequency: a few times a week Hx Substance Use: Yes substance use type: marijuana Substance Use Type Other:: medical marijuana Last Used Substance: Days (ago) Last Used Substance Other:: pt said he takes for anxiety as needed Review of Systems ROS Unobtainable: All systems reviewed & are unremarkable except as noted in HPI & below Physical Exam Vital Signs Last Vital Signs Temp 37.2 C 06/04/23 13:40 Pulse 116 H 06/04/23 13:40 Resp 20 06/04/23 13:40 BP 140/106 H 06/04/23 13:40 Pulse Ox 98 06/04/23 13:40 O2 Del Method Room Air 06/04/23 13:40 ENMT Mouth: no TMJ abnormality Thyromental Distance: > or= 3.5 Finger Breadths Mallampati Class: II Neck normal visual inspection and trachea midline; neck extension not limited Respiratory normal respiratory effort Auscultation: lungs clear to auscultation bilaterally Cardiovascular Rate/Rhythm: regular rate and regular rhythm Heart Sounds: no murmur Musculoskeletal Spine: normal cervical ROM Extremities: full ROM of extremities Neurologic moves all extremities Psychiatric Orientation: alert and oriented x 3
[2023-06-04] MEDS: ceFAZolin 2000MG 2,000 MG/15 ML SYR IV SCH (14:26)
[2023-06-04] MEDS ORDERED: HYDROmorphone INJ 2 MG/ML SYR/VIAL ONE (15:18)
[2023-06-04] MEDS: BUPIVACAINE/EPINEPHRINE 0.25% 1:200,000 30 ML VIAL ONE (15:31)
--- NOTE | 2023-06-04 16:28 | Operative Report ---
PG Post Operative Report Pre & Post Diagnosis Operation Date: 06/04/23 07:00 Pre-Op Diagnosis: Bilateral Patellar tendon rupture Post-Op Diagnosis: Bilateral Patellar tendon rupture I identified the patient and participated in the time-out.: Yes Procedure Operation Date: 06/04/23 07:00 Actual Procedures p Bilateral Patella Tendon Repair(Bilateral) - Darell Espinoza DO Surgeon Darell Espinoza DO Assistant Coach Darell Olivas PA-C Estimated Blood Loss 20 Findings Consistent with Post-Op Diagnosis Specimens None Description of Procedure Barry had a repair of each patella tendon which had ruptured directly off the inferior pole the patella. Each was fixed using Arthrex suture tape in a Krakw fashion and anchored through bone tunnels in the patella. After the fixation I was able to bend the knee about 90 degrees before there was much tension on the repair. On May Barry was brought down from his hospital room to the preoperative holding area. The operative extremities were identified and signed. He was given a preoperative antibiotic and an adductor canal block.. He was taken back the operating room and laid on table in supine position. He was put under general anesthesia. Both knees were then prepped and draped in sterile fashion. A timeout was done. The patient and the operative extremity were properly identified. The left knee was done first. A midline incision was made directly over the patella. Dissection was taken down through the fascia. The ruptured patella tendon was easily identified. The knee joint was irrigated with the pulse lavage. The patella tendon had ruptured directly off the its insertion site on the patella. The patellar bone was then cleaned out with a rongeur and a rasp to get down to good bleeding bone. The patella tendon was then whipstitched with an Arthrex 1.3 mm suture tape. This was done in a Krakw fashion with a suture starting centrally and exiting on the medial side of the tendon. An additional suture was placed starting centrally and exiting the lateral side of the tendon. 3 drill holes were then placed in the patella. 1 drill hole was placed centrally, 1 medially and 1 laterally. A suture passer was used to pass the sutures through the patella and out the superior pole. 2 sutures were passed through the central hole and one was passed through each of the medial and lateral holes. The 2 central sutures were then passed underneath the quadriceps tendon and tied to either the medial or lateral sutures. This gave a nice repair of the patella tendon back to the bone. After the patella tendon was repaired the knee was flexed to 90 degrees before there was much tension on the repair. The medial and lateral retinaculum were then repaired with #0 PDS suture. The knee was once again flexed to 90 degrees before there was much tension on the repair. The fascial layer was then closed with 2-0 Vicryl. Skin was closed with 2-0 Vicryl and abdoulaye. He was then placed in a soft compressive dressing and a knee immobilizer. The right knee was done second. A midline incision was made directly over the patella. Dissection was taken down through the fascia. The ruptured patella tendon was easily identified. The knee joint was irrigated with the pulse lavage. The patella tendon had ruptured directly off the its insertion site on the patella. The patellar bone was then cleaned out with a rongeur and a rasp to get down to good bleeding bone. The patella tendon was then whipstitched with an Arthrex 1.3 mm suture tape. This was done in a Krakw fashion with a suture starting centrally and exiting on the medial side of the tendon. An additional suture was placed starting centrally and exiting the lateral side of the tendon. 3 drill holes were then placed in the patella. 1 drill hole was placed centrally, 1 medially and 1 laterally. A suture passer was used to pass the sutures through the patella and out the superior pole. 2 sutures were passed through the central hole and one was passed through each of the medial and lateral holes. The 2 central sutures were then passed underneath the quadriceps tendon and tied to either the medial or lateral sutures. This gave a nice repair of the patella tendon back to the bone. After the patella tendon was repaired the knee was flexed to 90 degrees before there was much tension on the repair. The medial and lateral retinaculum were then repaired with #0 PDS suture. The knee was once again flexed to 90 degrees before there was much tension on the repair. The fascial layer was then closed with 2-0 Vicryl. Skin was closed with 2-0 Vicryl and abdoulaye. He was then placed in a soft compressive dressing and a knee immobilizer. He was then extubated and transferred to a hospital bed. He was taken to the postanesthesia care unit in stable condition. He tolerated the procedure well. Darell Olivas PA-C, was present for the entire procedure. He was critical for patient positioning, prepping, draping, retraction exposure, wound closure and application of sterile dressing. I attest to the content of the Intraoperative Record and any orders documented therein. Any exceptions are noted below.
[2023-06-04] MEDS: fentaNYL citrate PF 100 MCG/2 ML VIAL IV PRN (16:34)
[2023-06-04] MEDS ORDERED: DEXAMETHASONE SOD INJ 4 MG/ML VIAL ONE ×2 (16:35)
[2023-06-04] MEDS ORDERED: ONDANSETRON INJ 2 MG/ML 2 ML VIAL ONE (16:35)
[2023-06-04] MEDS ORDERED: NON-FORMULARY MEDICATION (Sildenafil 100 mg tablet) PO PRN (17:22)
--- NOTE | 2023-06-04 17:38 | Anesthesiology Progress Note ---
Date of Service June 04, 2023 Anesthesia Post Procedure Vital Signs Vital Signs: Temp Pulse Pulse Resp BP BP Pulse Ox 06/04/23 17:19 37.1 C 98 H 16 129/88 97 06/04/23 16:55 37.3 C 100 H 12 149/91 H 97 06/04/23 16:45 92 H 14 149/102 H 100 06/04/23 16:35 100 H 14 141/98 H 100 06/04/23 16:29 36.2 C L 100 H 15 151/100 H 100 06/04/23 13:40 37.2 C 116 H 20 140/106 H 98 06/04/23 07:36 36.9 C 96 H 16 159/99 H 99 06/03/23 20:02 36.4 C L 111 H 16 135/91 98 O2 Del Method O2 Flow Rate 06/04/23 17:19 Room Air 06/04/23 16:55 Room Air 06/04/23 16:45 Oxymask 5 06/04/23 16:35 Oxymask 5 06/04/23 16:29 Oxymask 5 06/04/23 13:40 Room Air 06/04/23 07:36 Room Air 06/03/23 20:02 Room Air Pain Intensity Bilateral Knee: Pain Intensity: 6 Transfer of Care Handoff Completed per policy Notes Mental Status: alert / awake / arousable and participated in evaluation Patient Amnestic to Procedure: Yes Nausea / Vomiting: adequately controlled Pain: adequately controlled Airway Patency, RR, SpO2: stable & adequate BP & HR: stable & adequate Hydration State: stable & adequate Anesthetic Complications: no major complications apparent
[2023-06-04] MEDS: oxyCODONE HCL IR 5 MG TAB (IMMEDIATE RELEASE) PO PRN (18:31)
[2023-06-04] MEDS: ACETAMINOPHEN 500 MG TAB PO SCH (21:18)
[2023-06-05] MEDS: HYDROmorphone INJ 0.5 MG/0.5 ML SYR IV PRN (13:02)
--- NOTE | 2023-06-05 13:57 | Orthopedic Progress Note ---
Date of Service June 05, 2023 Assessment & Plan (1) Patellar tendon rupture: Overall, he is doing quite well today good pain control to his bilateral knees. He will work with physical therapy later this morning to work on ambulation and range of motion exercises. He must maintain his knee immobilizers when he is up and ambulating. He may come out of them at rest but he must not do any flexion of his knees. He is on aspirin for DVT prophylaxis. He wishes to go to [facility] for rehabilitation. Case management is following. Will hold off on discharge today in anticipation that he may get placed in [facility] for rehabilitation hopefully tomorrow after he works with physical therapy. Will continue to follow. Subjective . Barry was seen this morning resting comfortably in no apparent distress. He notes that his pain is well-controlled to the bilateral knees. He has been up and out of bed with no significant issues. He has yet to work with physical therapy this morning. He denies any other concerns today. Review of Systems All systems reviewed & are unremarkable except as noted in HPI & below. Physical Exam . On physical examination of his bilateral knees, his dressings are clean, dry, intact with knee immobilizers in place. His legs are out in full extension. He has active plantarflexion dorsiflexion and both ankles. +2 DP and PT pulses. Less than 2-second capillary refill. Normal sensation. Neurovascular intact. Results & Data Results & Data Laboratory Results . Diagnostic Findings . PG Care Time/CCT Total # of Minutes Spent Total Time Spent with Patient: Total time spent is greater than 50% in coordination of care (as documented) at patient's floor/unit and/or counseling patient: Coding Level of Care Code 10418 Post Operative Follow-Up Diagnoses Patellar tendon rupture S86.819A Encounter type: initial encounter Laterality: unspecified laterality (1) Patellar tendon rupture Encounter type: initial encounter Laterality: unspecified laterality Qualified Code(s): S86.819A - Strain of other muscle(s) and tendon(s) at lower leg level, unspecified leg, initial encounter
--- NOTE | 2023-06-05 22:54 | Hospitalist Consultation ---
Date of Consultation June 05, 2023 Assessment & Plan (1) Tachycardia: Pt is a 38 yo male with no significant PMH admitted to the hospital for surgical repair of bilateral patellar tendon rupture. Hospitalist service was consulted d/t tachycardia. Sinus tachycardia - pt's HR 90- low 100s throughout hospital stay w/ sharp increase tonight to 120-140s - EKG showing sinus tachycardia - CBC showed mild leukocytosis to 11.47, Hgb 14.2; pt received cefazolin x1 prior to surgery; do not suspect active infection at this time- would recommend monitoring fever curve, etc for signs of infection - CMP showed mild hypokalemia to 3.4 otherwise WNL; will supplement with 40 meq PO potassium and recheck with AM labs; dehydration does not appear to be playing a role based off of pt hx and lab work - pt does endorse significant hx of anxiety which I suspect is contributing to pt's tachycardia and hypertension; will treat with ativan 0.5mg BID PRN while hospitalized and melatonin PRN HS to help with sleep; recommended f/u with PCP to discuss terminologist anti-anxiety medications if necessary - discussed bilateral LE dopplers w/ US; d/t compression bandages on bilateral knees, US will most likely be suboptimal, but should at least be able to look at the calves; if high clinical suspicion for DVT remains, may need to repeat dopplers once bandages are off; f/u US results - CTA negative for PE - once dopplers result, would discuss aspirin vs. eliquis anticoagulation S/p bilateral patellar tendon repair - management per ortho (2) Patellar tendon rupture: Supervising Physician Co-Signing Physician Notes Attending addendum: I have physically seen this patient, have supervised the medical residents activities, and agree with the H&P unless as otherwise noted. Assessment and Plan: Tachycardia- Consult from orthopedic surgery overnight EKG with sinus tachycardia CBC with differential is acceptable Chemistry panel significant for mild hypokalemia, which will be normalized with oral supplementation as noted Lower extremity venous Dopplers were officially read as negative, however there is concern about nonocclusive DVT CTA chest ordered to assess for PE was reported as negative by stat rad, however, will have [place]ology over read in the morning due to concern regarding PE as cause of tachycardia History of Present Illness Reason for Consultation: tachycardia Attending Physician: Darell A Alexis, DO History of Present Illness Pt is a 38 yo male with no significant PMH admitted to the hospital for surgical repair of bilateral patellar tendon rupture. Hospitalist service was consulted d/t tachycardia. Pt was admitted 06/03/2023 after he fell getting out of his camper and injured both of his knees. Xrays showed superior displacement of bilateral patellas w/ associated swelling. Orthopedics was consulted for evaluation. Bilateral knee MRIs showed full thickness patellar tendon tears w/ patellofemoral ligaments sprains. Bilateral patellar tendons were repaired 06/04/2023 w/o immediate complication. He notes that he was able to get up today and bear weight on his legs. He did require 1 dose of IV pain medicine but that seemed to control his pain well in addition to his PO oxycodone. He has also been drinking a lot of fluids, especially Gatorade, and has been urinating a lot. Pt notes that he does have a significant hx of anxiety for which he occasionally uses cannabis gummies on the weekend. Otherwise, he only takes Mounjaro for weight loss and Viagra PRN. He has no other medical hx. Per ortho note, pt to be on aspirin for DVT ppx but he has not received any this hospitalization. No personal or family hx of blood clots. Pt received cefazolin x1 prior to surgery. Allergies Allergy/AdvReac Type Severity Reaction Status Date / Time No Known Allergies Allergy Unverified 06/03/23 16:32 Home Medications Medication Instructions Recorded Confirmed Type sildenafil 100 mg tablet 100 mg PO DAILY PRN other 06/03/23 06/03/23 History tirzepatide (weight loss) 2.5 2.5 mg subcut WK 06/03/23 06/03/23 History mg/0.5 mL subcutaneous pen injector ([employer]) Patient History Medical History Obesity Surgical History No pertinent past surgical history Family History Other No pertinent family history Social History (Updated 06/03/23 @ 18:06 by Leonid Reardon PA-C) Smoking Status: Never smoker Hx Alcohol Use: Yes Alcohol type: beer Hx Substance Use: Yes Last Used Substance: Days (ago) Last Used Substance Other:: pt said he takes for anxiety as needed Substance Use Type Other:: medical marijuana Preferred Language: Bel[place]ian Communication Ability: Effective Hearing Ability: Normal Clinical Pharmacy Coordinator Required: No Beliefs That Will Affect Care: None marital status: Current Living Situation: Family current occupational status: employed Feels Safe at Home: Yes Assistive Devices: Glasses Review of Systems Review of Systems: As per HPI Physical Exam Constitutional: NAD, diaphoretic, tachycardia. Respiratory: CTA bilaterally. Non labored breathing. No rhonchi, wheezing, or crackles. Cardiovascular: Regular rhythm, tachycardic. No murmurs noted. No LE edema. Skin: No rashes or skin lesions noted. No LE erythema or pain upon palpation. Neurologic: Sensation grossly intact. No FND appreciated. Psychiatric: Speech of normal pace and content. Mood and affect congruent. Results & Data Results & Data Vital Signs (Past 12 Hours) Vital Signs Temp Pulse Pulse Resp BP BP Pulse Ox 06/05/23 22:14 37.6 C H 129 H 16 158/96 H 98 06/05/23 15:54 36.8 C 98 H 16 153/99 H 99 O2 Del Method 06/05/23 22:14 Room Air 06/05/23 15:54 Room Air Resident Activity Tracking Resident Involvement: Resident Care Provided Care Provided: Adult Hospital Medicine (2) Patellar tendon rupture Encounter type: initial encounter Laterality: unspecified laterality Qualified Code(s): S86.819A - Strain of other muscle(s) and tendon(s) at lower leg level, unspecified leg, initial encounter
[2023-06-05 23:46] LABS: Basophils # (auto) 0.03 K/uL (0.00-0.20); Basophils % (auto) 0.3 %; Eosinophils # (auto) 0.01 K/uL (0.00-0.50); Eosinophils % (auto) 0.1 %; Hematocrit (blood only) 41.2 % (42.0-52.0); Hemoglobin 14.2 g/dl (14.0-18.0); Immature Granulocytes # (auto) 0.04 K/uL (0.01-0.20); Immature Granulocytes % (auto) 0.3 %; Lymphocytes # (auto) 2.35 K/uL (1.20-3.40); Lymphocytes % (auto) 20.5 %; Mean Corpuscular Hemoglobin 28.8 pg (25.0-34.0); Mean Corpuscular Hgb Conc 34.5 g/dL (32.0-36.0); Mean Corpuscular Volume 83.6 fL (80.0-100.0); Mean Platelet Volume 9.6 fL (9.4-12.4); Monocytes # (auto) 0.95 K/uL (0.11-0.59); Monocytes % (auto) 8.3 %; Neutrophils # (auto) 8.09 K/uL (1.40-6.50); Neutrophils % (auto) 70.5 %; Platelet Count 260 K/uL (130-400); RDW Coefficient of Variation 13.9 % (11.5-14.5); RDW Standard Deviation 42.4 fL (36.4-46.3); Red Blood Count 4.93 M/uL (4.70-6.10); White Blood Count 11.47 K/ul (4.8-10.8)
[2023-06-06 00:02] LABS: Albumin Globulin Ratio 1.4 (0.9-2); Albumin Level 4.3 gm/dl (3.4-5.0); BUN Creatinine Ratio 6.6 (10-20); Bilirubin,Total 0.7 mg/dl (0.2-1.0); Creatinine Clr Calc Pharmacy 128.5 ml/min; Est GFR (African American) 104.1 ml/min; Est GFR (Non-African American) 89.8 ml/min; Globulin 3.1 gm/dl (2.5-4.0); Magnesium 1.8 mg/dl (1.7-2.4); Phosphorus 2.1 mg/dl (2.5-4.9); Potassium 3.4 mmol/L (3.5-5.1); Total Protein 7.4 gm/dl (6.0-8.3)
[2023-06-06] MEDS: POTASSIUM CHLORIDE CRTAB 20 MEQ TABCR PO ONE (00:36)
[2023-06-06] MEDS: OPTIRAY 320 125ml IV ONE (01:38)
[2023-06-06] MEDS: MELATONIN 3 MG TAB PO PRN (02:42)
[2023-06-06] MEDS: LORazepam 0.5 MG TAB PO PRN (02:42)
--- NOTE | 2023-06-06 04:19 | CT Scan Report ---
Exam(s): CTA CHEST IV Amt: 117 ML OPTIRAY 320 EXAM: CT Angiography Chest With Intravenous Contrast CLINICAL HISTORY: Reason for exam: PE. TECHNIQUE: Axial computed tomographic angiography images of the chest with intravenous contrast. CTDI is 42.25 mGy and DLP is 926.5 mGy-cm. Automated exposure control was utilized for the study. A dose lowering technique was utilized adhering to the principles of ALARA. MIP reconstructed images were created and reviewed. COMPARISON: No relevant prior studies available. FINDINGS: Pulmonary arteries: Motion artifact limits evaluation. Despite this, no evidence of pulmonary embolism within the pulmonary outflow tract or immediate proximal branches. Aorta: No acute findings. No thoracic aortic aneurysm. Lungs: Mild dependent atelectatic changes within the lungs. No mass. Pleural space: Unremarkable. No significant effusion. No pneumothorax. Heart: Cardiomegaly. No significant pericardial effusion. No evidence of RV dysfunction. Bones/joints: Degenerative changes in the spine. No acute fracture. No dislocation. Soft tissues: Gynecomastia. Lymph nodes: Unremarkable. No enlarged lymph nodes. IMPRESSION: Motion artifact limits evaluation. Despite this, no evidence of pulmonary embolism within the pulmonary outflow tract or immediate proximal branches. Electronically signed by: Hilton Prince MD 06/06/23 04:18 AM
--- NOTE | 2023-06-06 05:11 | Ultrasound Report ---
Exam(s): US VENOUS BILATERAL LOWER EXTREMITIES EXAM: US Duplex Bilateral Lower Extremities Veins CLINICAL HISTORY: Reason for exam: r/o DVT. TECHNIQUE: Real-time duplex ultrasound scan of the bilateral lower extremity veins integrating B-mode two-dimensional vascular structure, Doppler spectral analysis, color flow Doppler imaging and compression. COMPARISON: No relevant prior studies available. FINDINGS: Limited sonographic imaging was obtained. No evidence of deep venous thrombosis within the bilateral posterior tibial or peroneal veins. IMPRESSION: Limited sonographic imaging was obtained. No evidence of deep venous thrombosis within the bilateral posterior tibial or peroneal veins. Electronically signed by: Hilton Prince MD 06/06/23 05:10 AM
--- NOTE | 2023-06-06 07:36 | Hospitalist Progress Note ---
Date of Service June 06, 2023 Assessment & Plan (1) Tachycardia: (2) Patellar tendon rupture: (3) Pulmonary embolism: (4) Postoperative non-occlusive thrombus: (5) Anxiety: Plan Pt is a 38 yo male with no significant PMH admitted to the hospital for surgical repair of bilateral patellar tendon rupture. Hospitalist service was consulted d/t tachycardia. Pulmonary Embolism Postoperative non-occlusive thrombus -Venous Doppler performed overnight shows occlusive thrombus in the right peroneal vein -CTA on 06/05 showed no pulmonary embolism, over read done by day team radiologist showed filling defects within the segmental/subsegmental branches of the right lower lobe consistent with acute pulmonary embolism. No evidence of right sided heart strain, trace bilateral pleural effusion. -Started on Eliquis on 06/05 morning. 10mg BID for 7 days, then 5mg BID. -Most likely a provoked PE, but given age will do hypercoag workup, f/u outpatient with results. -tachycardiac today, though sating well on RA. Sinus tachycardia - Tachycardiac in the 100's consistently - EKG showing sinus tachycardia - CBC showed mild leukocytosis to 11.47, Hgb 14.2; pt received cefazolin x1 prior to surgery; do not suspect active infection at this time - CMP showed mild hypokalemia to 3.4 otherwise WNL; - Drug screen negative. - May be a result of PE or anxiety, though tachycardia persistent despite initially tx of both. - No R heart strain seen on CTA, though given above will get TTE. Anxiety: - Patient will need f/u with PCP about anxiety. - Will tx acutely with Ativan 1mg q6H. S/p bilateral patellar tendon repair - management per ortho - will need SNF on DC. Admission and Anticipated Discharge Date Admission Date: June 03, 2023 Supervising Physician Co-Signing Physician Notes Attending attestation Pt seen and examined in concert with Dr. Ruiz. In agreement with the documented findings as noted in the resident documentation with any exceptions or additions as noted here. Much more comfortable and less anxious following lorazepam administration. Reports no palpitations, chest pain, SOB. On examination, S1/S2 nl, tachy, no MCG. CTAB. Abd NT/ND BS+ve Pulmonary embolism - reviewed doppler and CTA - transition to DOAC. Will follow up sendout hypercoag workup but likely not to return for some time. Echocardiogram 2/2 ongoing HTN, tachycardia, though ?anxiety Anxiety - increase dose and frequency of lorazepam PRN order to compensate for anxiety. Counseling and support regarding expected course. Spouse aware. Else see resident documentation as noted. Subjective Patient seen bedside this AM. Patient c/o heart racing and troubles with relaxing and sleeping. Review of Systems Review of Systems: All systems reviewed & are unremarkable except as noted in Subjective Physical Exam Physical Exam: Constitutional: well-appearing, HEENT: NCAT, no conjunctival injection CV: tachycardiac, no murmur appreciated, extremities well-perfused, no LE edema Resp: CTABL, no wheezes/rales/rhonchi appreciated, no increased work of breathing Results & Data Results & Data Vital Signs (Past 12 Hours) Vital Signs Temp Pulse Pulse Pulse Resp BP BP 06/06/23 04:16 36.8 C 123 H 20 150/97 H 06/06/23 02:56 119 H 06/06/23 01:48 37.6 C H 134 H 20 159/105 H 06/06/23 00:20 37.0 C 116 H 16 156/90 H 06/05/23 22:55 37.6 C H 142 H 20 165/94 H 06/05/23 22:14 37.6 C H 129 H 16 158/96 H Pulse Ox O2 Del Method 06/06/23 04:16 96 Room Air 06/06/23 02:56 06/06/23 01:48 99 Room Air 06/06/23 00:20 98 Room Air 06/05/23 22:55 98 Room Air 06/05/23 22:14 98 Room Air (2) Patellar tendon rupture Encounter type: initial encounter Laterality: unspecified laterality Qualified Code(s): S86.819A - Strain of other muscle(s) and tendon(s) at lower leg level, unspecified leg, initial encounter
[2023-06-06 07:57] LABS: Hematocrit (blood only) 38.7 % (42.0-52.0); Hemoglobin 13.8 g/dl (14.0-18.0); Mean Corpuscular Hemoglobin 28.8 pg (25.0-34.0); Mean Corpuscular Hgb Conc 35.7 g/dL (32.0-36.0); Mean Corpuscular Volume 80.8 fL (80.0-100.0); Mean Platelet Volume 9.6 fL (9.4-12.4); Platelet Count 253 K/uL (130-400); RDW Standard Deviation 41.1 fL (36.4-46.3); Red Blood Count 4.79 M/uL (4.70-6.10); White Blood Count 12.04 K/ul (4.8-10.8)
[2023-06-06 08:20] LABS: BUN Creatinine Ratio 8.1 (10-20); Calcium 9.2 mg/dl (8.6-10.3); Creatinine Clr Calc Pharmacy 184.1 ml/min; Est GFR (African American) 137.5 ml/min; Est GFR (Non-African American) 118.7 ml/min; Potassium 3.8 mmol/L (3.5-5.1)
[2023-06-06] MEDS: LORazepam 1 MG TAB PO STA (08:27)
[2023-06-06] MEDS: APIXABAN 5 MG TABLET PO SCH (08:27)
--- NOTE | 2023-06-06 10:43 | Electrocardiogram Report ---
Test Reason : Blood Pressure : / mmHG Vent. Rate : 134 BPM Atrial Rate : 134 BPM P-R Int : 140 ms QRS Dur : 088 ms QT Int : 290 ms P-R-T Axes : 038 -25 098 degrees QTc Int : 433 ms Poor data quality, interpretation may be adversely affected Sinus tachycardia with Premature atrial complexes Left ventricular hypertrophy with repolarization abnormality Poor R wave progression, consider anterior WI vs. lead placement vs. LVH Abnormal ECG No previous ECGs available Confirmed by Uday Ambrose ([id number]) on 06/06/2023 10:43:13 AM Referred By: Anmol Da Silva Confirmed By:Quinton Ambrose
--- NOTE | 2023-06-06 11:58 | Orthopedic Progress Note ---
Date of Service June 06, 2023 Assessment & Plan (1) Patellar tendon rupture: Overall, he is doing quite well orthopedically today with good pain control to his bilateral knees. Due to him feeling a little worn down today from his night, I do think it is best that we hold off on physical therapy for today and try again tomorrow morning. He is more than welcome to work with physical therapy later in the afternoon if he is feeling a little more rested. His dressings can be changed today over his bilateral knees. The dressings itself could be changed to a long island dressing after there is a little bit of drainage. If there is no drainage, an ABD can be placed prior to applying the hinged knee brace over the surgical site. He is now on Eliquis 10 mg due to new findings of PE and DVT. He is currently waiting to hear back from [facility]. Case management following. Appreciate hospitalist recommendations. Please see their notes for medical recommendations as well. We will discharge once medical team states that he is medically stable for discharge and if he is accepted to [facility]/bed availability. Will continue to follow. Subjective . Barry was seen and evaluated this morning resting today in comfortably in bed. He notes that he is doing better this morning than he was over the night. He was having a bout of tachycardia with hypertension in which the hospitalist was then consulted. A CTA of the chest as well as a venous Doppler was completed last night and which was originally read as normal. This morning, they were reread and did show that he had a DVT to the right lower extremity as well as a acute pulmonary embolism. He was started on Eliquis 10 mg this morning. He was also having a little bit of anxiety so the hospitalist service started him on Ativan. Today he notes he notes he is feeling much more relaxed. He notes that he is feeling a little bit tired due to him not having much sleep last night. He denies any other concerns today. Review of Systems All systems reviewed & are unremarkable except as noted in HPI & below. Physical Exam . On physical examination of his bilateral knees, his dressings are clean, dry, intact with knee immobilizers in place. His legs are out in full extension. He has active plantarflexion dorsiflexion and both ankles. +2 DP and PT pulses. Less than 2-second capillary refill. Normal sensation. Neurovascular intact. Results & Data Results & Data Laboratory Results . Diagnostic Findings . Venous Doppler Study 06/06/23 00:10 Exam(s): US VENOUS BILATERAL LOWER EXTREMITIES EXAM: US Duplex Bilateral Lower Extremities Veins CLINICAL HISTORY: Reason for exam: r/o DVT. TECHNIQUE: Real-time duplex ultrasound scan of the bilateral lower extremity veins integrating B-mode two-dimensional vascular structure, Doppler spectral analysis, color flow Doppler imaging and compression. COMPARISON: No relevant prior studies available. FINDINGS: Limited sonographic imaging was obtained. No evidence of deep venous thrombosis within the bilateral posterior tibial or peroneal veins. IMPRESSION: Limited sonographic imaging was obtained. No evidence of deep venous thrombosis within the bilateral posterior tibial or peroneal veins. Electronically signed by: Hilton Prince MD 06/06/23 05:10 AM Chest CTA 06/06/23 00:36 Exam(s): CTA CHEST IV Amt: 117 ML OPTIRAY 320 EXAM: CT Angiography Chest With Intravenous Contrast CLINICAL HISTORY: Reason for exam: PE. TECHNIQUE: Axial computed tomographic angiography images of the chest with intravenous contrast. CTDI is 42.25 mGy and DLP is 926.5 mGy-cm. Automated exposure control was utilized for the study. A dose lowering technique was utilized adhering to the principles of ALARA. MIP reconstructed images were created and reviewed. COMPARISON: No relevant prior studies available. FINDINGS: Pulmonary arteries: Motion artifact limits evaluation. Despite this, no evidence of pulmonary embolism within the pulmonary outflow tract or immediate proximal branches. Aorta: No acute findings. No thoracic aortic aneurysm. Lungs: Mild dependent atelectatic changes within the lungs. No mass. Pleural space: Unremarkable. No significant effusion. No pneumothorax. Heart: Cardiomegaly. No significant pericardial effusion. No evidence of RV dysfunction. Bones/joints: Degenerative changes in the spine. No acute fracture. No dislocation. Soft tissues: Gynecomastia. Lymph nodes: Unremarkable. No enlarged lymph nodes. IMPRESSION: Motion artifact limits evaluation. Despite this, no evidence of pulmonary embolism within the pulmonary outflow tract or immediate proximal branches. Electronically signed by: Hilton Prince MD 06/06/23 04:18 AM PG Care Time/CCT Total # of Minutes Spent Total Time Spent with Patient: Total time spent is greater than 50% in coordination of care (as documented) at patient's floor/unit and/or counseling patient: Coding Level of Care Code 80492 Post Operative Follow-Up Diagnoses Patellar tendon rupture S86.819A Encounter type: initial encounter Laterality: unspecified laterality (1) Patellar tendon rupture Encounter type: initial encounter Laterality: unspecified laterality Qualified Code(s): S86.819A - Strain of other muscle(s) and tendon(s) at lower leg level, unspecified leg, initial encounter
[2023-06-06 12:31] LABS: Amphetamines+Metham, Urine Neg (Neg); Barbiturates, Urine Neg (Neg); Benzodiazepine, Urine Neg (Neg); Cocaine, Urine Neg (Neg); MDMA (Ecstacy), Urine Neg (Neg); Marijuana, Urine Neg (Neg); Methadone, Urine Neg (Neg); Opiate, Urine Neg (Neg); Phencyclidine, Urine Neg (Neg)
[2023-06-06] MEDS: LORazepam 1 MG TAB PO PRN (16:42)
--- NOTE | 2023-06-06 19:23 | XCELERA ---
[id number]
--- NOTE | 2023-06-07 02:46 | Billing Data ---
Date of Service June 07, 2023 Coding Level of Care Code 36344 IN/OBS CONSULT LVL 3,45M
[2023-06-07 04:44] LABS: Hematocrit (blood only) 39.8 % (42.0-52.0); Hemoglobin 14.1 g/dl (14.0-18.0); Mean Corpuscular Hemoglobin 29.3 pg (25.0-34.0); Mean Corpuscular Hgb Conc 35.4 g/dL (32.0-36.0); Mean Corpuscular Volume 82.6 fL (80.0-100.0); Mean Platelet Volume 9.7 fL (9.4-12.4); Platelet Count 278 K/uL (130-400); RDW Coefficient of Variation 14.3 % (11.5-14.5); RDW Standard Deviation 42.8 fL (36.4-46.3); Red Blood Count 4.82 M/uL (4.70-6.10); White Blood Count 10.78 K/ul (4.8-10.8)
[2023-06-07 05:00] LABS: BUN Creatinine Ratio 14.5 (10-20); Calcium 9.1 mg/dl (8.6-10.3); Creatinine Clr Calc Pharmacy 164.1 ml/min; Est GFR (African American) 131.2 ml/min; Est GFR (Non-African American) 113.2 ml/min
--- NOTE | 2023-06-07 07:27 | Discharge Summary ---
Date of Service June 07, 2023 Discharge Data Allergies Allergy/AdvReac Type Severity Reaction Status Date / Time No Known Allergies Allergy Unverified 06/03/23 16:32 Consultations 06/05/23 22:39 Consult Hospitalist Routine Procedures Performed Operation Date: 06/04/23 07:00 Actual Procedures p Bilateral Patella Tendon Repair(Bilateral) - Darell Espinoza, Ordered Studies 06/03/23 12:24 MRI Knee [MR knee LT wo con] Stat MRI Knee [MR knee RT wo con] Stat 06/04/23 13:56 US - OR guided needle placemen Urgent 06/06/23 00:10 US venous doppler LE BI Stat 06/06/23 00:36 CT angio chest PE protocol Stat Hospital Course (1) Tachycardia: (2) Patellar tendon rupture: (3) Pulmonary embolism: (4) Postoperative non-occlusive thrombus: (5) Anxiety: Plan Pt is a 38 yo male with no significant PMH admitted to the hospital for surgical repair of bilateral patellar tendon rupture. Hospitalist service was consulted d/t tachycardia. Pulmonary Embolism Postoperative non-occlusive thrombus -Venous Doppler performed overnight shows occlusive thrombus in the right peroneal vein -CTA on 06/05 showed no pulmonary embolism, over read done by day team radiologist showed filling defects within the segmental/subsegmental branches of the right lower lobe consistent with acute pulmonary embolism. No evidence of right sided heart strain, trace bilateral pleural effusion. -Started on Eliquis on 06/05 morning. 10mg BID for 7 days, then 5mg BID. -Most likely a provoked PE, but given age will do hypercoag workup, f/u outpatient with results. -tachycardiac today, though sating well on RA. Sinus tachycardia - Tachycardiac in the 100's consistently - EKG showing sinus tachycardia - CBC showed mild leukocytosis to 11.47, Hgb 14.2; pt received cefazolin x1 prior to surgery; do not suspect active infection at this time - CMP showed mild hypokalemia to 3.4 otherwise WNL; - Drug screen negative. - May be a result of PE or anxiety, though tachycardia persistent despite initially tx of both. - No R heart strain seen on CTA, though given above will get TTE. Anxiety: - Patient will need f/u with PCP about anxiety. - Will tx acutely with Ativan 1mg q6H. S/p bilateral patellar tendon repair - management per ortho - will need SNF on DC. Discharge Plan Discharge Items Reason For Visit: B/L KNEE PAIN Follow-up/Referrals: Anmol Da Silva, [Primary Care Provider] - Medications and DC Order Prescriptions: No Action sildenafil 100 mg tablet 100 mg PO DAILY PRN (Reason: other ) Zepbound 2.5 mg/0.5 mL pen injector 2.5 mg SUBCUT WK Admission Data Admit Date/Time: 06/03/23 13:33 Attending Provider: Darell Espinoza Admit Provider: Darell Espinoza Primary Care Provider: Anmol Da Silva Other Providers: [facility]; Uday Alcantar; Joe Cody
--- NOTE | 2023-06-07 09:53 | Orthopedic Progress Note ---
Date of Service June 07, 2023 Assessment & Plan (1) Patellar tendon rupture: Overall, he is doing quite well orthopedically today with good pain control to his bilateral knees. He will work with physical therapy this morning to work on ambulation and range of motion exercises. His dressings can be changed today over his bilateral knees. The dressings itself could be changed to a long island dressing after there is a little bit of drainage. If there is no drainage, an ABD can be placed prior to applying the hinged knee brace over the surgical site. I did discuss personally with the nursing staff today about his dressing changes. This will be changed today. He is now on Eliquis 10 mg due to new findings of PE and DVT. [facility]. Appreciate hospitalist recommendations. Please see their notes for medical recommendations as well. We will discharge once medical team states that he is medically stable for discharge and [facility] Will continue to follow. I, Dr. Darell Espinoza, saw and examined injury to at bedside today. He was resting comfortably with his knees. He is not having too much knee pain. He continues to remain slightly tachycardic. This is being treated by the medical service. He had an echocardiogram yesterday. He does have anxiety and this is being treated as well. He is on Eliquis for pulmonary embolus. With regards to his knees, he can be weightbearing as tolerated in the knee immobilizers. He will be in the full immobilizer for at least 2 weeks. Were currently waiting discharged to a rehab facility. Subjective . Barry was seen this morning resting comfortably in no apparent distress. He notes that he is doing a lot better today. He notes that he had good rest last night. He has been up and out of bed with no significant issues. He did state that he did try to eat have a bowel movement late last night early this morning but was not able to get comfortable due to both legs being fully extended. He is yet to work with physical therapy today. He denies any other concerns today. Review of Systems All systems reviewed & are unremarkable except as noted in HPI & below. Physical Exam . On physical examination of his bilateral knees, his dressings are clean, dry, intact with knee immobilizers in place. His legs are out in full extension. He has active plantarflexion dorsiflexion and both ankles. +2 DP and PT pulses. Less than 2-second capillary refill. Normal sensation. Neurovascular intact. Results & Data Results & Data Laboratory Results . Diagnostic Findings . PG Care Time/CCT Total # of Minutes Spent Total Time Spent with Patient: Total time spent is greater than 50% in coordination of care (as documented) at patient's floor/unit and/or counseling patient: Coding Level of Care Code 93419 Post Operative Follow-Up Diagnoses Patellar tendon rupture S86.819A Encounter type: initial encounter Laterality: unspecified laterality (1) Patellar tendon rupture Encounter type: initial encounter Laterality: unspecified laterality Qualified Code(s): S86.819A - Strain of other muscle(s) and tendon(s) at lower leg level, unspecified leg, initial encounter
--- NOTE | 2023-06-07 15:15 | Hospitalist Progress Note ---
Date of Service June 07, 2023 Assessment & Plan (1) Anxiety: (2) Postoperative non-occlusive thrombus: (3) Pulmonary embolism: (4) Tachycardia: (5) Patellar tendon rupture: Plan Pt is a 38 yo male with no significant PMH admitted to the hospital for surgical repair of bilateral patellar tendon rupture. Hospitalist service was consulted d/t tachycardia. Pulmonary Embolism Postoperative non-occlusive thrombus -Venous Doppler performed overnight shows occlusive thrombus in the right peroneal vein -CTA on 06/05 showed no pulmonary embolism, over read done by day team radiologist showed filling defects within the segmental/subsegmental branches of the right lower lobe consistent with acute pulmonary embolism. No evidence of right sided heart strain, trace bilateral pleural effusion. -Started on Eliquis on 06/05 morning. 10mg BID for 7 days, then 5mg BID. -Most likely a provoked PE, but given age will do hypercoag workup, f/u outpatient with results. -tachycardiac, though sating well on RA. Sinus tachycardia - Tachycardiac in the 100's consistently - EKG showing sinus tachycardia - CBC showed mild leukocytosis to 11.47, Hgb 14.2; pt received cefazolin x1 prior to surgery; do not suspect active infection at this time - CMP showed mild hypokalemia to 3.4 otherwise WNL; - Drug screen negative. - May be a result of PE or anxiety, though tachycardia persistent despite initially tx of both. - No R heart strain seen on CTA, - LEANA benign, 60-65% EF Anxiety: - Patient will need f/u with PCP about anxiety. - Will tx acutely with Ativan 1mg q6H. S/p bilateral patellar tendon repair - management per ortho - will need SNF on DC. Admission and Anticipated Discharge Date Admission Date: June 03, 2023 Supervising Physician Co-Signing Physician Notes Attending attestation Pt seen and examined in concert with Dr. Ruiz. In agreement with the documented findings as noted in the resident documentation with any exceptions or additions as noted here. No acute complaints at time of examination. Engaged with rehab services. On examination, S1/S2 nl, tachy, no MCG. CTAB. Abd NT/ND BS+ve Pulmonary embolism - reviewed doppler and CTA - tolerating DOAC. Follow up sendout hypercoag workup. Anxiety - lorazepam PRN. Else see resident documentation as noted. Subjective Patient seen bedside this AM. No issues or concerns. Review of Systems Review of Systems: All systems reviewed & are unremarkable except as noted in Subjective Physical Exam Physical Exam: Constitutional: well-appearing, HEENT: NCAT, no conjunctival injection CV: tachycardiac, no murmur appreciated, extremities well-perfused, no LE edema Resp: CTABL, no wheezes/rales/rhonchi appreciated, no increased work of breathing Results & Data Results & Data Vital Signs (Past 12 Hours) Vital Signs Temp Pulse Pulse Pulse Resp BP Pulse Ox 06/07/23 12:46 36.9 C 101 H 16 148/95 H 97 06/07/23 07:38 36.8 C 107 H 20 140/95 98 06/07/23 07:06 94 H 06/07/23 04:01 36.7 C 103 H 16 141/91 H 98 O2 Del Method 06/07/23 12:46 Room Air 06/07/23 07:38 Room Air 06/07/23 07:06 06/07/23 04:01 Room Air (5) Patellar tendon rupture Encounter type: initial encounter Laterality: unspecified laterality Qualified Code(s): S86.819A - Strain of other muscle(s) and tendon(s) at lower leg level, unspecified leg, initial encounter
[2023-06-07] MEDS: POLYETHYLENE (MIRALAX) 17 GM PACK PO ONE (19:49)
[2023-06-08 04:00] LABS: Basophils # (auto) 0.06 K/uL (0.00-0.20); Basophils % (auto) 0.6 %; Eosinophils # (auto) 0.16 K/uL (0.00-0.50); Eosinophils % (auto) 1.7 %; Hematocrit (blood only) 40.6 % (42.0-52.0); Hemoglobin 13.8 g/dl (14.0-18.0); Immature Granulocytes # (auto) 0.02 K/uL (0.01-0.20); Immature Granulocytes % (auto) 0.2 %; Lymphocytes # (auto) 2.46 K/uL (1.20-3.40); Lymphocytes % (auto) 26.5 %; Mean Corpuscular Hemoglobin 28.2 pg (25.0-34.0); Mean Platelet Volume 9.6 fL (9.4-12.4); Monocytes # (auto) 0.68 K/uL (0.11-0.59); Monocytes % (auto) 7.3 %; Neutrophils # (auto) 5.91 K/uL (1.40-6.50); Neutrophils % (auto) 63.7 %; Platelet Count 318 K/uL (130-400); RDW Coefficient of Variation 14.2 % (11.5-14.5); Red Blood Count 4.89 M/uL (4.70-6.10); White Blood Count 9.29 K/ul (4.8-10.8)
[2023-06-08 04:18] LABS: BUN Creatinine Ratio 14.9 (10-20); Calcium 9.3 mg/dl (8.6-10.3); Creatinine Clr Calc Pharmacy 156.6 ml/min; Est GFR (African American) 128.7 ml/min; Magnesium 2.1 mg/dl (1.7-2.4)
--- NOTE | 2023-06-08 07:27 | Discharge Summary ---
Date of Service June 08, 2023 Discharge Data Allergies Allergy/AdvReac Type Severity Reaction Status Date / Time No Known Allergies Allergy Unverified 06/03/23 16:32 Consultations 06/05/23 22:39 Consult Hospitalist Routine Procedures Performed Operation Date: 06/04/23 07:00 Actual Procedures p Bilateral Patella Tendon Repair(Bilateral) - Darell Espinoza DO Ordered Studies 06/03/23 12:24 MRI Knee [MR knee LT wo con] Stat MRI Knee [MR knee RT wo con] Stat 06/04/23 13:56 US - OR guided needle placemen Urgent 06/06/23 00:10 US venous doppler LE BI Stat 06/06/23 00:36 CT angio chest PE protocol Stat Hospital Course (1) Anxiety: (2) Postoperative non-occlusive thrombus: (3) Pulmonary embolism: (4) Tachycardia: (5) Patellar tendon rupture: Plan Pt is a 38 yo male with no significant PMH admitted to the hospital for surgical repair of bilateral patellar tendon rupture. Hospitalist service was consulted d/t tachycardia. Pulmonary Embolism Postoperative non-occlusive thrombus -Venous Doppler performed overnight shows occlusive thrombus in the right peroneal vein -CTA on 06/05 showed no pulmonary embolism, over read done by day team radiologist showed filling defects within the segmental/subsegmental branches of the right lower lobe consistent with acute pulmonary embolism. No evidence of right sided heart strain, trace bilateral pleural effusion. -Started on Eliquis on 06/05 morning. 10mg BID for 7 days, then 5mg BID. -Most likely a provoked PE, but given age will do hypercoag workup, f/u outpatient with results. -tachycardiac, though sating well on RA. Sinus tachycardia - Tachycardiac in the 100's consistently - EKG showing sinus tachycardia - CBC showed mild leukocytosis to 11.47, Hgb 14.2; pt received cefazolin x1 prior to surgery; do not suspect active infection at this time - CMP showed mild hypokalemia to 3.4 otherwise WNL; - Drug screen negative. - May be a result of PE or anxiety, though tachycardia persistent despite initially tx of both. - No R heart strain seen on CTA, - LEANA benign, 60-65% EF Anxiety: - Patient will need f/u with PCP about anxiety. - Will tx acutely with Ativan 1mg q6H. S/p bilateral patellar tendon repair - management per ortho - will need SNF on DC. Discharge Plan Discharge Items Reason For Visit: B/L KNEE PAIN Follow-up/Referrals: Anmol Da Silva DO [Primary Care Provider] - Medications and DC Order Prescriptions: No Action sildenafil 100 mg tablet 100 mg PO DAILY PRN (Reason: other ) Zepbound 2.5 mg/0.5 mL pen injector 2.5 mg SUBCUT WK Admission Data Admit Date/Time: 06/03/23 13:33 Attending Provider: Darell Espinoza Admit Provider: Darell Espinoza Primary Care Provider: Anmol Da Silva Other Providers: [facility]; Joe Cody; Timothy Mckee
--- NOTE | 2023-06-08 09:33 | Hospitalist Progress Note ---
Date of Service June 08, 2023 Assessment & Plan (1) Anxiety: (2) Postoperative non-occlusive thrombus: (3) Pulmonary embolism: (4) Tachycardia: (5) Patellar tendon rupture: Plan Pt is a 38 yo male with no significant PMH admitted to the hospital for surgical repair of bilateral patellar tendon rupture. Hospitalist service was consulted d/t tachycardia. Pulmonary Embolism Postoperative non-occlusive thrombus -Venous Doppler performed overnight shows occlusive thrombus in the right peroneal vein -CTA on 06/05 showed filling defects within the segmental/subsegmental branches of the right lower lobe consistent with acute pulmonary embolism. No evidence of right sided heart strain, trace bilateral pleural effusion. -Started on Eliquis on 06/05 morning. 10mg BID for 7 days, then 5mg BID. -Most likely a provoked PE, but given age will do hypercoag workup, f/u outpatient with results. -tachycardiac, though sating well on RA. -ortho ordered cefazolin outpatient antibiotics -patient ready for discharge from hospitalist standpoint Sinus tachycardia - Tachycardiac in the 100's consistently - EKG showing sinus tachycardia - CBC showed mild leukocytosis to 11.47, Hgb 14.2; pt received cefazolin x1 prior to surgery; do not suspect active infection at this time - CMP showed mild hypokalemia to 3.4 otherwise WNL; - Drug screen negative. - May be a result of PE or anxiety, though tachycardia persistent despite initially tx of both. - No R heart strain seen on CTA, - LEANA benign, 60-65% EF Anxiety: - Patient will need f/u with PCP about anxiety. - Will tx acutely with Ativan 1mg q6H. S/p bilateral patellar tendon repair - management per ortho - will need SNF on DC. Admission and Anticipated Discharge Date Admission Date: June 03, 2023 Supervising Physician Co-Signing Physician Notes I independently saw the patient and confirmed sloan portions of the clinical history and physical examination. I agree with the impression and plan as noted in the resident documentation. Upon my exam, the patient was lying supine in bed; at bedside. He has no new complaints. Exam 150/89, 102, 18, 36.7, 98% on room air Alert and oriented. No distress appreciated. Neck is supple. Heart mildly tachycardic, auscultated rate mid 80s. It is regular. No murmurs appreciated. Lungs are clear throughout with nonlabored respirations. He has braces on both lower legs. Data Hemoglobin 13.8, platelet count 318 Sodium 136, potassium 4.0, BUN 13, creatinine 0.87 Impression and plan Bilateral patellar tendon rupture, status post repair Pulmonary embolism Tolerating apixaban. Very much seems like a provoked venous thromboembolism, but did discuss that hypercoagulable work was completed given his age. No noted family history of VTE. Assuming workup negative, likely need 3-6 months of anticoagulation. Plan is discharge to [facility] for PT. Eventual follow-up with his PCP in [place], [place]. Subjective Patient seen at bedside, calm comfortable cooperative. Questions answered appropriately. Patient ready for rehab Physical Exam Constitutional: WD/WN, vitals as above Eyes: PERRL, conjunctivae normal, anicteric sclerae ENMT: external ear and nose normal, oropharynx normal Respiratory: normal respiratory effort, lungs clear to auscultation Cardiovascular: Rate/Rhythm: regular rate and regular rhythm Musculoskeletal: b/l legs in supportive equipment Skin: no rashes, warm and dry Results & Data Results & Data Vital Signs (Past 12 Hours) Vital Signs Temp Pulse Pulse Resp BP Pulse Ox O2 Del Method 06/08/23 08:07 36.7 C 102 H 18 126/86 98 Room Air 06/08/23 07:25 85 06/08/23 02:48 36.7 C 107 H 16 130/91 98 Room Air 06/07/23 23:04 37.1 C 114 H 16 148/96 H 98 Room Air 06/07/23 21:58 107 H Resident Activity Tracking Resident Involvement: Resident Care Provided Care Provided: Adult Hospital Medicine (5) Patellar tendon rupture Encounter type: initial encounter Laterality: unspecified laterality Qualified Code(s): S86.819A - Strain of other muscle(s) and tendon(s) at lower leg level, unspecified leg, initial encounter
--- NOTE | 2023-06-08 14:27 | Orthopedic Progress Note ---
Date of Service June 08, 2023 Assessment & Plan (1) Patellar tendon rupture: Overall, he is doing quite well orthopedically today with good pain control to his bilateral knees. He will work with physical therapy this morning to work on ambulation and range of motion exercises. His dressings can be changed today prior to discharge. He is weightbearing as tolerated in the knee immobilizers. He is now on Eliquis 10 mg due to new findings of PE and DVT. He will be on this for 5 more days upon discharge. After that time, he will change to 5 mg twice daily for 3 months. He is aware that his PCP will be managing his anticoagulation therapy. Appreciate hospitalist recommendations. Please see their notes for medical recommendations as well. He has both medically and orthopedically stable for discharge. Will discharge him to [facility] today. He can follow-up with orthopedics in 7 to 10 days for postoperative management. Subjective . Barry was seen this morning resting comfortably in no apparent distress. He notes that he is doing quite well today. He notes that he had good rest last night. He has been up and out of bed with no significant issues. He has yet to work with physical therapy today. He denies any other concerns today. Anticipated discharge to [facility] this afternoon around 12:00. Review of Systems All systems reviewed & are unremarkable except as noted in HPI & below. Physical Exam . On physical examination of his bilateral knees, his dressings are clean, dry, intact with knee immobilizers in place. His legs are out in full extension. He has active plantarflexion dorsiflexion and both ankles. +2 DP and PT pulses. Less than 2-second capillary refill. Normal sensation. Neurovascular intact. Results & Data Results & Data Laboratory Results . Diagnostic Findings . PG Care Time/CCT Total # of Minutes Spent Total Time Spent with Patient: Total time spent is greater than 50% in coordination of care (as documented) at patient's floor/unit and/or counseling patient: Coding Level of Care Code 00563 Post Operative Follow-Up Diagnoses Patellar tendon rupture S86.819A Encounter type: initial encounter Laterality: unspecified laterality (1) Patellar tendon rupture Encounter type: initial encounter Laterality: unspecified laterality Qualified Code(s): S86.819A - Strain of other muscle(s) and tendon(s) at lower leg level, unspecified leg, initial encounter
--- NOTE | 2023-06-08 14:38 | Discharge Summary ---
Date of Service June 08, 2023 Admission HPI (Per Admitting) Barry is a pleasant 38-year-old male who was leaving the [employer] game earlier today when he fell out of his camper. He sustained bilateral knee injuries. He came to the emergency room where radiographs demonstrated superior elevation of his patellas on both the films. This can be suggestive of patella tendon ruptures. He was placed in knee immobilizers. Orthopedics was consulted to evaluate and treat.. Admission Exam (Per Admitting) On physical examination of his legs, he has knee immobilizers in place. He has Kenneth wrap's around both knees. I did not bother taking everything down. I talked to the ER physician. They said they could feel the defects at the patella tendons. He is neurovascular intact.. Principal Diagnosis Same as "Discharge Diagnosis" noted below under Discharge Instructions. Discharge Exam . On physical examination of his bilateral knees, his dressings are clean, dry, intact with knee immobilizers in place. His legs are out in full extension. He has active plantarflexion dorsiflexion and both ankles. +2 DP and PT pulses. Less than 2-second capillary refill. Normal sensation. Neurovascular intact. Discharge Data Consultations 06/05/23 22:39 Consult Hospitalist Routine Procedures Performed Operation Date: 06/04/23 07:00 Actual Procedures p Bilateral Patella Tendon Repair(Bilateral) - Darell Espinoza DO Ordered Studies 06/03/23 12:24 MRI Knee [MR knee LT wo con] Stat MRI Knee [MR knee RT wo con] Stat 06/04/23 13:56 US - OR guided needle placemen Urgent 06/06/23 00:10 US venous doppler LE BI Stat 06/06/23 00:36 CT angio chest PE protocol Stat Hospital Course (1) Patellar tendon rupture: Encounter type: initial encounter Laterality: unspecified [facility] Qualified Code(s): S86.819A - Strain of other muscle(s) and tendon(s) at lower leg level, unspecified leg, initial encounter (2) Tachycardia: (3) Pulmonary embolism: (4) Postoperative non-occlusive thrombus: (5) Anxiety: Plan On June 03, 2023 Barry arrived at [facility] emergency department after he sustained bilateral patellar tendon ruptures. Immediate surgical intervention could not be completed on this date due to patient not being NPO. He was admitted into the hospital onto the general orthopedic floor in stable condition and tucked in for the night for surgical intervention the next morning. On June 04, 2023 injury underwent a bilateral patellar tendon repair performed by Dr. Espinoza with no complications. He had a general anesthetic. Postoperatively, he was transferred to the PACU for immediate postoperative management and then transferred to the general orthopedic floor in stable condition. On postoperative day #1, his vital signs were stable and his pain was well-controlled. He participated well with physical therapy working on ambulation exercises. Later in the day, he began having increased vital signs of blood pressure and pulse. He was also having a little bit of anxiety. Due to the tachycardia, a rapid EKG was completed and hospitalist was then consulted. A CTA and venous duplex where than completed. These were originally read as normal but in the morning of postoperative day #2, the day radiologist read that he had an acute PE as well as a DVT in the peroneal vein. He was then started on Eliquis 10 mg twice daily. They also started him on some Ativan to help with his anxiety. On postoperative day #2, he was on bedrest. He did note that he was feeling better with the anxiety medication on board. No other significant events occurred. Referral was made for [facility] on postoperative day #1 and was still pending on postoperative day #2. On postoperative day #3, his vital signs are stable and his pain is well- controlled. He participated well with physical therapy working on ambulation exercises. He was still waiting placement at [facility] for rehabilitation. No other significant events occurred on this day. On postoperative day #4, his vital signs were stable and his pain is well- controlled. He participated well with physical therapy working on ambulation exercises. Insurance authorization and bed placement were approved for [facility]. He was then discharged to [facility] in stable condition. He will follow-up with orthopedics in 7 to 10 days for postoperative management. PG Care Time/CCT Total # of Minutes Spent Total Time Spent with Patient: Total time spent is greater than 50% in coordination of care (as documented) at patient's floor/unit and/or counseling patient: Discharge Plan Discharge Items Patient Disposition: Transfer Inpatient Rehab Fac Reason For Visit: B/L KNEE PAIN Discharge Diagnosis: Pulmonary Embolism Activity: Resume your previous activity Non-emergency contact: Primary Care Provider Call non-emergency contact if: you have any medication questions, your pain is worsening and you have a fever Follow-up/Referrals: Anmol Da Silva, [Primary Care Provider] - Diet: Regular Addtl Attending Provider Instructions: Pt is a 38 yo male with no significant PMH admitted to the hospital for surgical repair of bilateral patellar tendon rupture. Hospitalist service was consulted d/t tachycardia. Pulmonary Embolism Postoperative non-occlusive thrombus -Venous Doppler performed overnight shows occlusive thrombus in the right peroneal vein -CTA on 06/05 segmental/subsegmental branches of the right lower lobe consistent with acute pulmonary embolism. No evidence of right sided heart strain, trace bilateral pleural effusion. -Started on Eliquis on 06/05 morning. 10mg BID for 7 days, then 5mg BID. -Most likely a provoked PE, but given age will do hypercoag workup, f/u outpatient with results. Sinus tachycardia - Tachycardiac in the 100's consistently - EKG showing sinus tachycardia - CBC showed mild leukocytosis to 11.47, Hgb 14.2; pt received cefazolin x1 prior to surgery; do not suspect active infection at this time - CMP showed mild hypokalemia to 3.4 otherwise WNL; - Drug screen negative. - May be a result of PE or anxiety, though tachycardia persistent despite in itially tx of both. - No R heart strain seen on CTA, - LEANA benign, 60-65% EF Anxiety: - Patient will need f/u with PCP about anxiety. - Will tx acutely with Ativan 1mg q6H. S/p bilateral patellar tendon repair - management per ortho - will need SNF on DC. Pending Studies at Discharge: Yes (hypercoagulability panel) Stand-Alone Forms: My [facility] Skilled Items Patient informed of condition?: Yes DNR: No Discharge Level of Care: Acute rehab Communicable Disease: No Discharge Prognosis: Stable Lines: None Urinary Catheter: No Medications and DC Order Prescriptions: New Eliquis 5 mg Tablet 5 mg PO BID 90 Days Qty: 180 0RF Rx Instructions: Take 10 mg (2 Pills) Twice a day for 5 Days. Then take 5 mg (1 Pill) Twice a day for 3 months oxycodone 5 mg Tablet 5 mg PO Q6H PRN (Reason: pain) Qty: 30 0RF cefadroxil 500 mg capsule 500 mg PO BID 10 Days Qty: 20 0RF Continued sildenafil 100 mg tablet 100 mg PO DAILY PRN (Reason: other ) Zepbound 2.5 mg/0.5 mL pen injector 2.5 mg SUBCUT WK Discharge Orders: Discharge Order (Routine); Ordered 06/08/23 Ordered By: Dallin Gonzalez Admission Data Admit Date/Time: 06/03/23 13:33 Attending Provider: Darell Espinoza Admit Provider: Darell Espinoza Primary Care Provider: Anmol Da Silva Other Providers: [facility]; Joe Cody; Timothy Mckee Other Interventions: Discharge Summary Assessment (RN) Last Done: 06/08/23 11:04
== END 2023-06-08 12:52 | DRG 500 ==
LOC: ED 10:05 → 3N 13:33 → 2W 06-06 01:32